=== PATIENT | male | born 1980 | race Caucasian/White ===

== ENCOUNTER 2016-06-06 19:49 | Inpatient (IN) | payer OTHER ==
[~2016-06-06] VITALS: Ht 170.2 cm; Wt 109.9 kg
[2016-06-07] MEDS ORDERED: Magnesium Hydroxide 10 mL Oral Concentration PO PRN (01:00)
[2016-06-07] MEDS ORDERED: Benzocaine-Menthol Lozenge 2/Pkg PO PRN (01:00)
[2016-06-07] MEDS ORDERED: OLAN10TA19 PO (01:57)
[2016-06-07] MEDS ORDERED: LORA2TAB PO (01:57)
--- NOTE | 2016-06-07 04:22 | NUR ---
Admit pt admitted to [facility] at 0005 via stretcher from [place] on [facility] 72 hr hold. Pt has a hx of shizophrenia, anxiety, depression and ludwigs angina. He is a self pay. He was by brought by EMS restraint via stretcher. Pt was incarcerated for domestic assault, was hallucinating and reported command hallucinations about hurting self and others (no harm contract signed). Per [facility] pt reports he had a plan to kill himself and or find anything to kill himself with. Pt appeared calm and cooperative with direction. Belongings list completed by [facility] and also admission packet completed and signed. pt states he has been off meds for quiet some time and is currently not taking anything. Pt states that he has taken seroquel, haldol and ativan at some time and seemed to have worked for him. pt received ativan and olanzapine at [place] prior to admit and according to report meds were effective. Per [facility], pt did not state need for PRN or other medications at this time. Pt did go to to his room and was asleep by 0130.
--- NOTE | 2016-06-07 05:50 | NUR ---
sleep noc shift 11-7 pt admitted at 0005 and was asleep by 0130, per Radha RN pt stated he did not need PRN's and he did not appear to be anxious. he had an uneventful night has slept about 3.5.
--- NOTE | 2016-06-07 05:54 | NUR ---
Pt arrived to unit 0005 via stretcher. Signed all paperwork and went to room. Pleasant and willing to come to staff if voices or aggressive urges occur. Asleep at 130. Pt observed every 15 minutes as ordered.
--- NOTE | 2016-06-07 14:47 | NUR ---
Chefs./ c.m. S.:"I'm a little anxious right now. Suicidal and homicidal thoughts are bad... I see blood on people and blood spots on myself also." O.: met with pt. and doctor together for initial interview in pt.'s room. Pt. is ALEXIS 72 hrs hold as DTS and DTO. He had multiple hospitalizations in the past including [facility] in [place]. He came to [place] from [place] 2 mo. ago. He is unemployed and homeless. He came from nursing home and he would have to co back to nursing home serving his sentence at time of discharge. He has mental health hx since 2004. He has a long hx of polysubstance abuse. He is using ETOH and mj frequently. He was on and off meds since 2005. He started having AH since 2004. He has family hx of mental condition. He continued having AH/VH. "They are very sweet at the beginning. They tell me to kill myself. I see blood on people and blood spots on myself also." he continued having SI/HI. He couldn't contract for safety. He rated depression at 8/10 and anxiety at 9/10. He promised to come to the Nursing station if he felt in danger or unsafe. He spent most of the time in his room except for meals. A.: pt. is cooperative, quiet, isolative, scared and anxious. P.: monitor behavior, provide safety in the unit; follow care plan.
[2016-06-07] MEDS: LORazepam 1 mg Tablet PO PRN ×2 (16:52→21:08)
[2016-06-07] MEDS: OLANZapine Zydis ODT 5 mg Tablet PO PRN (16:52)
--- NOTE | 2016-06-07 17:23 | NUR ---
Nursing Dayshift: S: "Can I get something? I'm seeing blood on people. I want to stay safe." O: Patient accepted Ativan 1 mg PO and Zyprexa 10 mg PO at 1652. Up for supper after that with a good appetite. Has been eating fast at meals. Close to 100% consumed at all meals today. Has stated that when he sees blood the voices tell him to harm those people. States the blood is a visual hallucination. Also states the voices start out nice then get meaner and more forceful the more he tries to ignore them. Anxiety and depression "high". Harmful thoughts toward himself and others "but I will let you know when I need help". A: Command AH and VH. Cooperative in alerting staff. P: CPOC. Monitor mood and behavior. Monitor for effectiveness of prn's. Addendum: 06/07/16 at 1738 by VERENICE KOCH RN Amended: Links added.
--- NOTE | 2016-06-07 18:05 | NUR ---
Observations [id number] Pt was asleep upon start of shift. Pt slept much of the day and present as very quiet and isolative. Pt attended all meals, eating 100%. Pt did not interact much with staff or peers that this policy writer sales saw. Pt was observed every 15 minutes of shift as directed.
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
--- NOTE | 2016-06-08 04:50 | NUR ---
Observations from 5903-8200 Pt spent majority of this shift in his room. He came out periodically for snacks or water but went back to sleep within 15 minutes. Pt did not attend wrap up group and appeared asleep at 2200. Pt has been monitored every 15 minutes as directed.
--- NOTE | 2016-06-08 05:57 | NUR ---
Nursing Noc Pt continues to isolate in his room but is out for snacks. He took his scheduled medication without difficulty. Pleasant upon interaction. No behavioral issues. Total sleep over 7 hours sleep with no noted distress or anxiety per protocol checks.
[2016-06-08 08:30] VITALS: BP 139/87; PULSE 95; RESP 17
[2016-06-08] MEDS: OLANZapine Zydis ODT 5 mg Tablet PO PRN ×3 (08:42→19:43)
--- NOTE | 2016-06-08 12:59 | NUR ---
Nursing Note 2023-1792 Behavior S/O: Pt out of room for meals. Pt ate 100% of breakfast. Pt reported this am prior to medications that he "feels terrible....The voices are strong today." Pt reported no improvement after am medications. Pt reported after lunch he is con't to have audio & visual hallucinations. He rated his anxiety at an "8" on a scale of 1-10/10 the worst caused by the hallucinations. "I'm staying in my room....I'm afraid to be around people." Zyprexa Zydis 10 mg given at 1310. Encouraged pt to contact staff if he con't to feels overwhelmed. Conversation tracking clear & organized with normal rate & rhythm. Pleasant & cooperative with staff. A: Pt having uncontrolled anxiety r/t internal stimulation. P: Provide PRN medication as needed. Monitor medications & effects. Provide supportive environment. Addendum: 06/08/16 at 1345 by WOOD UREÑA RN Pt reported Zyprexa Zydis was only mildly effective & has requested Ativan. 1 mg given at 1344. Will monitor effectiveness.
[2016-06-08] MEDS: LORazepam 1 mg Tablet PO PRN ×2 (13:43→18:53)
--- NOTE | 2016-06-08 15:30 | PROG NOTE ---
[address] [address] PROGRESS NOTE PATIENT: LOUIS MARITNEZ : 1980 MR#: [id number] ADMIT: 06/07/2016 JOB ID: [id number] DATE: 06/08/2016 CHIEF COMPLAINT: "I would be willing to sign in on a voluntary basis, I really want to get help. The voices are really bad today." HISTORY OF PRESENT ILLNESS: As stated above, the patient is willing to sign himself in on a voluntary basis, indicating that he is ready and willing to continue to receive additional assistance. He indicates that he is experiencing auditory and visual hallucinations this morning of seeing blood on individuals and also command- type hallucinations telling him to kill himself and others. He reports that he did receive his morning medications including Haldol 10 mg and Cogentin, but indicates that he has continued to feel quite anxious. I have instructed him to request p.r.n. doses of Zyprexa. MENTAL STATUS EXAMINATION: He was cooperative, polite. He maintained good eye contact throughout. He openly admitted to significant distress. his speech was somewhat pressured. His mood was depressed with anxious features. His affect was elevated. His thought process shows no evidence of racing thoughts, loose or disorganized thinking, thought content. He readily admitted to significant difficulties with both suicidal and homicidal ideation. He admitted to significant struggles as noted above with auditory and visual hallucinations. He was alert, oriented to time, place, situation. Attention and concentration fleeting. Insight and judgment are poor. PHYSICAL EXAMINATION: VITAL SIGNS: Current: Temperature is 36.5, pulse 95, respirations 17, BP 119/87. MEDICATION REVIEW: Includes: 1. Haldol 10 mg b.i.d. 2. Cogentin 1 mg b.i.d. 3. P.r.n. doses of Zyprexa 10 mg q.6 h. 4. Trazodone. ASSESSMENT: [place] I. 1. Schizophrenia paranoid type. 2. Cannabis use disorder, chronic, severe. 3. Anxiety disorder, not otherwise specified. [place] II. Deferred. [place] III. None. [place] IV. Stressors are noted for chronic and mental health issues, noncompliance, current status of homelessness. [place] V. Global Assessment of Functioning current 30. PLAN: 1. Recommendations for discontinuation of trazodone with initiation of Remeron as alternative for sleep disturbance. 2. Recommendations for titration of Haldol to 15 mg b.i.d. 3. Recommendations for continuation of Cogentin 1 mg b.i.d. 4. Recommendations for voluntary admission. Patient is agreeable to sign.
--- NOTE | 2016-06-08 16:32 | NUR ---
Finger Grip Machine Operator./ c.m. S.:"I'm not feeling good at all. I want to kill myself but I don't know how I can do it here." O.: met shila pt. in his room. He was in bed with his eyes open. He didn't sleep well last night. "I woke up many times because of voices. They are very bad today too. I also upset about my g.f.." Pt. continued having "very strong SI/HI" and severe AH. He also had VH a few times today. "I'm staying in my room because I don't want to hurt anybody." He rated depression at 10/10 and anxiety at 9/10. We discussed his options of follow up and he agreed that the best plan would be to get placed on 90 LRO with additional days in the hospital. "I want to get help, but I also want to make sure that I can get help after discharge from here too." He agreed to let staff know if he couldn't keep himself safe at all. He spent most of the time in his room today. A.: pt. is isolative, cooperative, anxious, fearful and internally preoccupied. P.: monitor behavior, monitor for safety, increase safety protocol; follow care plan.
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
--- NOTE | 2016-06-08 17:44 | NUR ---
Observations 0247-1921 Pt was asleep upon start of shift. Pt again remained in his room for the majority of the day, isolative and somber. Pt was friendly with staff and peers but did not spend much time interacting. Pt attended all meals, eating 100%. When this mortgage or loan underwriter took pt's vitals and asked how he was doing, and he responded "terrible, the voices are really bad today." Pt was asked in the evening if he wanted to take a shower, which he agreed to and he said helped. Pt went to bed afterwards stating "I think it helped. I'm in a tough spot, but you all here are very nice." This mortgage or loan underwriter asked pt that if there was anything else he needed or any additional support he needed, if he would let us know to which he agreed. Pt was observed every 15 minutes of shift as directed.
--- NOTE | 2016-06-08 22:31 | NUR ---
Pt isolating to his room most of shift. Pt c/t have visual and audio hallucinations. Pt states he "sees blood on some people and not on others and is staying in his room because he doesn't want to hurt anyone". Pt rates anxiety 8/10, depression 8/10 and states he is having thoughts of harming himself. Pt came out to the [employer] yuli 2014 stating " can you give me a injection Im feeling like Im going to freak out". Md called Ativan 2mg Im Inj X 1 ordered. Administered 2mg ativan in Right deltoid and it was effective. Pt took the rest of PM meds and is currently resting in room. Pt is cooperative and polite with staff. Q15 min safety checks per protocol WCTM
--- NOTE | 2016-06-09 03:02 | NUR ---
Observations 1900 to 0700 Pt affect is flat. Pt continues to respond to internal stimuli and is seeing things. Pt was polite and cooperative. Pt had the where about to let staff know when he was having troubles with hearing voices and seeing things. Pt was in and out of his room numerous times. Pt has had a hard time sleeping. Pt first appeared asleep at 01:30 and was observed every 15 minutes through the night as directed.
--- NOTE | 2016-06-09 04:23 | NUR ---
Nursing Note Noc Patient slept poorly, less than 3 hours, and was restless. Up x2 for snack and tv. Accepted prn meds 2mg Ativan IM at 210. Pleasant and communicative of his needs.
[2016-06-09] MEDS: OLANZapine Zydis ODT 5 mg Tablet PO PRN ×2 (06:37→14:52)
[2016-06-09 09:20] VITALS: BP 121/78; PULSE 98; RESP 17
--- NOTE | 2016-06-09 11:53 | PROG NOTE ---
[address] [address] PROGRESS NOTE PATIENT: LOUIS MARTINEZ : 1980 MR#: [id number] ADMIT: 06/07/2016 JOB ID: [id number] DATE: 06/09/2016 CHIEF COMPLAINT: "I really had a hard time last night." This per patient report. HISTORY OF PRESENT ILLNESS: As stated above, the patient openly admitted to continuation of difficulties with visual hallucinations, including seeing blood, auditory hallucinations telling him to hurt himself, and open identification of discussing with staff. He reportedly states that he has had several thoughts of hurting himself and states that he does not want to. He did request injection of medication last evening and, a one time dose of Ativan was given. He readily identified significant relief at that point. He continues to isolate to his room, indicating that he does not feel safe on the unit. He openly identified that he knows that he does not want to act out and therefore feels that he has to control his behaviors by isolating in his room. MENTAL STATUS EXAM: He was sincerely distressed. He made good eye contact throughout. His speech was of normal tone, frequency, and volume. His mood is depressed with anxious features. His affect is elevated. His thought process shows evidence of circumstantial thought in reference to suicidal and homicidal ideation. He admitted to both hallucinations and continuation of delusions of belief that he is tormented by demons. He was alert, oriented to place and time. His attention and concentration intact. Memory intact in the short term, senior care, recent. Insight and judgment are poor. PHYSICAL EXAM: All vital signs are current. Temperature is 36.5, pulse is 95, respirations 17, BP 139/87. MEDICATION REVIEW: Includes: 1. Remeron 15 mg q.h.s. 2. Haldol 15 mg b.i.d. 3. Cogentin 1 mg b.i.d. 4. Ativan 1 mg q.4 h. p.r.n. 5. Zyprexa 10 mg q.6 h. p.r.n. ASSESSMENT: AXIS I: 1. Schizophrenia, paranoid type. 2. Rule out posttraumatic stress disorder, chronic. AXIS II: Deferred. AXIS III: None. AXIS IV: Stressors are noted for continuation of chronic and mental health issues. AXIS V: Global Assessment of Functioning current 35. PLAN: 1. Recommendations for further titration of Haldol to 20 mg b.i.d. 2. Initiation of Restoril 30 mg q.h.s. 3. Continuation of all other medications noted. 4. Recommendations for applications of LR 90+6 to be filed tomorrow. The patient is in agreement.
--- NOTE | 2016-06-09 13:57 | NUR ---
Nursing Note [id number] Behavior S/O: Pt in bed sleeping most of this shift. He & staff reported he has not been sleeping for the past few days d/t bothersome audio & visual hallucinations. Pt allowed to sleep & eat a late breakfast. Pt ate 100%. Pt was appreciative of being allowed to sleep. Pt slept through lunch & con't to sleep at this time. A: Pt left to sleep to see if AH/VH improve with rest. P: Provide supportive environment. Monitor medications & effects.
[2016-06-09] MEDS: LORazepam 1 mg Tablet PO PRN ×2 (14:52→19:48)
--- NOTE | 2016-06-09 15:39 | NUR ---
Research Investigator./ c.m. S.:"Nothing changed. Everything is the same. I don't want to go to a public place because I don't want to see blood on people. I don't know what I will do." O.: met with pt. in his room. He was in bed resting/sleeping in the middle of the afternoon. He continued having SI/HI, AH and VH. He was concerned about AH/VH and how long they would continue bothering him. We discussed his meds. He felt "very depressed and anxious" because he didn't know "what to expect outside" of his room. He had "very good visit with ticket maker yesterday". She promised to visit him again. He agreed to go to the Dining room together with technical publications writer to get a snack from a refrigerator. A.: pt. is cooperative, isolative, quiet, internally preoccupied and anxious. P.: monitor behavior, monitor for safety, encourage pt. to come out of his room more often, court tomorrow; follow care plan.
--- NOTE | 2016-06-09 17:10 | NUR ---
Nursing: PRJoann Gutierrezhan requested something for anxiety at 8 at 1450. Received Ativan 1 mg sublingually. He suggested that he could have Ativan IM, but acquiesced to take it by mouth. He also receive Zydis 10 mg sublingually at 1450. He stated he is not only anxious but still suicidal and homicidal. "Homicidal toward people that I see who have blood on them." P: Assess for effectiveness of Ativan and Zyprexa. .
--- NOTE | 2016-06-09 21:28 | NUR ---
Obs Dayshift Pt spent the day in his room, stated that he didn't want to be out in the milieu because he didn't want to hurt anyone. Pt did come up a few times looking for meds. Pt comes out for meals and snacks but eats fast and goes back to his room. Little engaging, during 15 min. checks he just cont. to say that he is "ok". Polite, poor eye contact, head down. Ok ADL's, Good meals
--- NOTE | 2016-06-10 01:53 | NUR ---
Observations 1900 to 0700 Pt affect is flat. Pt continues to respond to internal stimuli and is seeing things. Pt was polite and cooperative. Pt was in and out of his room numerous times. Pt has had a hard time sleeping. Pt first appeared asleep at 00:30 and was observed every 15 minutes through the night as directed.
--- NOTE | 2016-06-10 06:05 | NUR ---
Sleep 11p-7a Pt remained asleep since 0030 with no further distress or awakening noted this shift. Total sleep 5.5+ hours.
[2016-06-10] MEDS ORDERED: Haloperidol Decanoate 50 mg/mL Inj IM ONE (10:30)
[2016-06-10] MEDS: OLANZapine Zydis ODT 5 mg Tablet PO PRN (11:09)
--- NOTE | 2016-06-10 11:46 | PROG NOTE ---
[address] [address] PROGRESS NOTE PATIENT: LOUIS MARTINEZ : 1980 MR#: [id number] ADMIT: 06/07/2016 JOB ID: [id number] DATE: 06/10/2016 CHIEF COMPLAINT: "Unseen demons, I know they are real." This per patient report. HISTORY OF PRESENT ILLNESS: As stated above, the patient openly admitted to continuation of hallucinations, both visual and auditory. He indicated that this morning has been quite difficult. He indicates that they repeatedly are telling him to kill himself, that he is worth nothing, that he has no reason to live. He reportedly identified that he did receive his oral doses of Haldol this morning and Cogentin and I have encouraged him to request an additional p.r.n. doses of Zyprexa. He reports that he did sleep last evening but it was broken sleep. He noted that he was woken throughout the nighttime with several intrusive memories and nightmares. Per staff report, the patient continues to isolate and withdraws to his room and shows significant limited affect. He reportedly did receive IM injections of Ativan last evening after continuation of persistence. OBJECTIVE: On mental status extremities, he is quite anxious on approach. He maintains good eye contact. He is tearful and easily able to engage. He indicates that he does not want to hurt anybody or himself. He is persistently preoccupied His speech is of normal tone, frequency and volume. His mood is neutral. His affect is guarded. His thought process shows no evidence of racing thoughts. He continues to be somewhat circumstantial and hyperreligious in his themes. He does have experience suicidal and homicidal ideation with command type hallucinations from demonic forces. He continues to have experience of visual hallucinations of seeing blood on individuals and auditory hallucinations. He was alert, oriented to time and place. His attention and concentration are intact. 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 Insight and judgment are fair/poor. PHYSICAL EXAMINATION: Vital signs of current. Temperature is 36.2, pulse 98, respirations 17, BP 121/78. MEDICATION REVIEW: Includes: 1. Haldol 20 mg b.i.d. 2. Remeron 15 mg q.h.s. 3. Restoril 30 mg q.h.s. 4. Cogentin 1 mg b.i.d. 5. P.r.n. doses of Ativan 1 mg q.4 hours p.r.n., p.o. or IM. ASSESSMENT: AXIS I 1. Schizophrenia, paranoid type. 2. Rule out posttraumatic stress disorder, chronic. 3. Anxiety disorder, not otherwise specified. AXIS II Deferred. AXIS III None. AXIS IV Stressors are noted for chronic mental illness. AXIS V Global assessment of functioning of current 30. PLANS: 1. Recommendations for titration of Ativan to 2 mg every 4 hours p.o. or IM. 2. Titration of Remeron to 30 mg q.h.s. 3. Continuation of Haldol 20 mg b.i.d., Cogentin 1 mg b.i.d. 4. Initiation of Haldol Decanoate 50 mg injection today to be followed in one month on July 11. [facility]
--- NOTE | 2016-06-10 16:10 | NUR ---
Nursing Dayshift: S: "I'm still seeing red. And the voices. They tell me to hurt myself. When I take the Ativan then I find it easier to ignore them." O: Patient has been in his room much of the shift. Out for meals with a good appetite. Approachable. No interaction with peers. Rates anxiety at a 7, depression at a 9.5, harmful thoughts "real high. I will come tell you if I'm getting to the point of acting on it." Hallucinations per above subjective. Has received Zyprexa Zydis 10 mg at 1109 for hallucinations with minimal effectiveness. Requested IM Ativan and received 2 mg IM at 1158 and again at 1605 with fair effectiveness on earlier dose. A: Med compliant. Flat. P: CPOC. Monitor mood and behavior.
--- NOTE | 2016-06-10 17:48 | NUR ---
spiritual care: follow up pt was resting, got up immediately and requested prayer. Described his day, sleep and hopes. Engaged in conversation about coping and some reminiscing, including reflections about coping with feelings about his former girlfriend. participated in prayer and reflected on connecting with old buddies or making new friends through common interests.
--- NOTE | 2016-06-10 19:54 | NUR ---
Obs Dayshift Pt only comes out of his room for meals, meds and snack. Polite when approached, calm, quiet, isolative. Pt stated that its not a very good day but that he does feel better when he is alone in his room with the lights off, calming feeling. Pt has a depressed affect, head down, poor eye contact. Pt did perk up a little when I showed him the books, and encouraged him to take a newspaper back to his room. Ok ADL's, Good meals
--- NOTE | 2016-06-10 20:45 | NUR ---
Nurses PRN Patient requested and received Ativan 2 mg IM L deltoid for c/o increased anxiety,nights to assess response.
--- NOTE | 2016-06-11 04:07 | NUR ---
nursing, nights, 11-7 s- no i think i can get back to sleep on my own. just at snack. o- has appeared to sleep after 2345 to 0200, had a snack and appeared to sleep after 0300. assessed q 15 minutes. a- polite and generally appropriate. no apparent distress. p- monitor behavior/emotional state, quality, times and amount of sleep, use and effect of medication. husam
--- NOTE | 2016-06-11 05:12 | NUR ---
Pt wake off and on for much of shift, noted feeling restless. Asleep at 2300-200,315. Pleasant and willing to come to staff if voices or aggressive urges occur. Pt observed every 15 minutes as ordered.
--- NOTE | 2016-06-11 11:43 | PROG NOTE ---
[address] [address] PROGRESS NOTE PATIENT: LOUIS MARTINEZ : 1980 MR#: [id number] ADMIT: 06/07/2016 JOB ID: [id number] DATE: 06/11/2016 CHIEF COMPLAINT: "I slept a little bit better last night." I am coming to terms that I do think my anxiety is a difficult thing that makes it so hard for me." HISTORY OF PRESENT ILLNESS: As stated above, the patient openly identified a significant improvement with his sleep last evening. He indicated that he continues to hallucinate. He is coming to terms with the fact that more than likely this hallucination will not completely go away. He indicated that it is nice and comforting to know that he can expect certain things from the medication and understanding that essentially he is going to have to learn how did actually deal with hallucinations. He reports that he is aware that he has to return to [place] [facility] for sentencing on Wednesday and he has requested relocation to [place] post his discharge from the assisted and is requesting initiation of services in that region. He indicated that he would be fine and willing to transition through the [facility] and would like to receive care possibly through [facility]. He is aware that during his sentencing that more than likely he will be seen through [facility] due to his location. OBJECTIVE: On mental status examination, he was cooperative, polite. He maintained good eye contact throughout. He was in much better spirits today. His speech was of normal tone, frequency and volume. His mood is less anxious. His affect is congruent. He denied any evidence of racing thoughts, flight of ideas, loose or disconnected thinking. Thought content: He denied any evidence of current suicidal, homicidal ideation. He indicated that he did have hallucinations last evening, both command type auditory and visual hallucinations, but indicated that he is aware that more than likely this will persist and he is coming to terms on how to deal with them. He was alert, oriented to time and place. His attention and concentration intact. Insight and judgment are fair. PHYSICAL EXAM: Vital signs are current. Temperature is 36.7, pulse 97, respirations 17, BP 121/78. MEDICATION REVIEW: Includes: 1. Remeron 30 mg q.h.s. 2. Ativan 2 mg q.4 hours p.o. or IM for anxiety/agitation. 3. Restoril 30 mg q.h.s. 4. Haldol 20 mg b.i.d. 5. Cogentin 1 mg b.i.d. 6. Haldol decanoate injection given yesterday with a repeat dose on July 11. 7. P.r.n. doses of Zyprexa 10 mg q.6 hours. ASSESSMENT: AXIS I 1. Schizophrenia, paranoid type. 2. Rule out posttraumatic stress disorder, chronic. 3. Generalized anxiety disorder. AXIS II Deferred. AXIS III None. AXIS IV Stressors are noted for chronic mental health issues, life transition. AXIS V Global assessment of functioning of current 30. PLANS: 1. Recommendations for continuation of all medications noted. 2. Continuation of LR 90+ six with planned discharge to the court on Wednesday of next week. 3. Continuation of Haldol decanoate, next injection July 11. At that point in time, discontinuation of oral doses of Haldol.
--- NOTE | 2016-06-11 13:56 | NUR ---
spiritual care; follow up brief visit, prayer. pt sleeping, appreciative of support; apologetic for feeling sleepy.
[2016-06-11 15:00] VITALS: BP 120/78; PULSE 117; RESP 17
--- NOTE | 2016-06-11 15:07 | NUR ---
Nursing Note [id number] Behavior S/O: Pt out of room for meals only. Good appetite. Pt states, "I feel worse than yesterday." Pt couldn't remember when he last had a shower. Pulse 114 today possibly d/t increased anxiety. Conversation tracking clear & organized with normal rate & rhythm. A: Pt isolative in room. Con't to have psychotic sx. P: Provide supportive environment. Monitor medications & effects.
[2016-06-11] MEDS: LORazepam 1 mg Tablet PO PRN ×2 (15:21→23:38)
--- NOTE | 2016-06-11 18:10 | NUR ---
Observations [id number] Pt was asleep upon start of shift. Pt appears to continue to be very depressed and stated to this automotive service writer that "today is worse then yesterday." Pt remained in his room for much of the day, only appearing during meal times. Pt ate 100% of meals and was pleasant with both peers and staff. Pt did take a shower at the end of the day and returned to bed. He also requested to listen to music. Pt was observed every 15 minutes of shift as directed.
[2016-06-11] MEDS: OLANZapine Zydis ODT 5 mg Tablet PO PRN (23:38)
--- NOTE | 2016-06-11 23:40 | NUR ---
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
[2016-06-12] MEDS: Alum-Mag Hydrox-Simeth 30 mL Suspension PO PRN ×2 (00:13→23:24)
--- NOTE | 2016-06-12 03:57 | NUR ---
Pt wake off and on for much of shift, noted feeling restless. Asleep at 300 but still restless up and down. Pleasant and willing to come to staff if voices or aggressive urges occur. Music from earphones was noted by Pt to be helpful. Pt observed every 15 minutes as ordered.
--- NOTE | 2016-06-12 04:13 | NUR ---
Nursing Noc Pt pleasant and cooperative carrying conversation, laughing appropriately and engaged in activities in milieu. Pt requesting everything available for sleep and still noted to be first asleep at 0300. Pt noted to earlier this shift to be sleeping for few minutes then awake. Continuing to monitor sleep time and safety by Q15 minutes visual checks. Monitoring mood, behavior, emotional state and medications. CP
--- NOTE | 2016-06-12 11:41 | PROG NOTE ---
[address] [address] PROGRESS NOTE PATIENT: LOUIS MARTINEZ : 1980 MR#: [id number] ADMIT: 06/07/2016 JOB ID: [id number] DATE: 06/12/2016 CHIEF COMPLAINT: "I am coming to terms with dealing with my anxiety. I had to go get another shot this morning. I was feeling overwhelmed." HISTORY OF PRESENT ILLNESS: As stated above, the patient openly identified a continuation of factors of anxiety. He has stated that despite interventions of Remeron 30 mg q.h.s. He continues to struggle with anxiety and fears that he would act out on his hallucinations. He identified that he has accepting that more than likely the hallucinations of seeing blood on people as well as hearing command type hallucinations telling him to kill himself and to hurt others more than likely will not go away. He states that he continues to struggle with the presentation. He openly identified that he has no specific intent or plan of acting out on the above hallucinations. He reportedly has been compliant with all of his medications but it appears he has been consistently requesting additional p.r.n. doses of Zyprexa and Ativan both p.o. and IM. I have discussed further titration of his Remeron to maximum daily doses of 45 mg q.h.s., and he is agreeable. OBJECTIVE: On mental status examination, he was cooperative, polite. He maintained good eye contact throughout. His speech was of normal tone, frequency and volume. His mood remains anxious. His affect is congruent. His thought process shows no evidence of racing thoughts, flight of ideas, loose or disconnected thinking. Thought content: He readily admits to continuation of suicidal and homicidal thoughts which are prompted by the above hallucinations. There is no evidence of paranoia. He was alert, oriented to time and place. His attention and concentration intact. 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 Insight and judgment are fair. PHYSICAL EXAMINATION: Vital signs of current. Temperature is 37.1, pulse 117, respirations 17, BP 120/78. MEDICATION REVIEW: Includes: 1. Remeron 30 mg q.h.s. 2. Ativan 2 mg q.4 hours p.o. or IM. 3. Restoril 30 mg q.h.s. 4. Haldol 20 mg b.i.d. 5. Cogentin 1 mg b.i.d. 6. Zyprexa 10 mg q.6 hours p.r.n. for psychoses. ASSESSMENT: AXIS I 1. Schizophrenia, paranoid type. 2. Generalized anxiety disorder. 3. Rule out posttraumatic stress disorder, chronic. AXIS II Deferred. AXIS III None. AXIS IV Stressors are noted for chronic mental illness. AXIS V Global assessment of functioning of current 30. PLANS: 1. Recommendations for further titration of Remeron to 45 mg q.h.s. 2. Continuation of Haldol 20 mg b.i.d. with additional Haldol Decanoate, last injection June 10. 3. Continuation of Cogentin 1 mg b.i.d. 4. Continuation of pursuit of aftercare including connections with [facility] [place] with release to shelter scheduled on Wednesday. However, it is his hope to pursue further treatment in [place] post his shelter release including [facility] and [facility].
--- NOTE | 2016-06-12 17:33 | NUR ---
Nursing Dayshift: S: "I do feel like I'm getting a little better." O: Patient noted to be much less pressured. Out of room a little more today. States anxiety and depression are "over the top", harmful thoughts "still there", and hallucinations "still seeing red on people and the voices are still there but they aren't as loud." Eating well at meals. A: Approachable. Blunted. Improving. P: CPOC. Monitor mood and behavior.
--- NOTE | 2016-06-12 18:34 | NUR ---
spiritual care: follow up visit attempt pt sleeping did not rouse to voice.
[2016-06-12 20:04] VITALS: BP 144/91; PULSE 116; RESP 16
[2016-06-12] MEDS: LORazepam 1 mg Tablet PO PRN (23:22)
[2016-06-12] MEDS: OLANZapine Zydis ODT 5 mg Tablet PO PRN (23:34)
--- NOTE | 2016-06-13 03:00 | NUR ---
Nursing Noc Pt continues to reports intrusive thoughts interrupting his sleep noted to attempt sleep with all available. PRNs with poor return. Remeron increased yesterday. Pt reports Ativan is helping with anger that he is experiencing from intrusive thoughts. Continuing to monitor q15 minute safety checks, mood, behavior, emotional state, and sleep time. CP
--- NOTE | 2016-06-13 05:30 | NUR ---
Pt wake off and on for much of shift, noted feeling restless. Asleep at [id number]. Awake on and off Pleasant and willing to come to staff if voices or aggressive urges occur. Music from earphones was noted by Pt to be helpful. Pt observed every 15 minutes as ordered.
--- NOTE | 2016-06-13 11:48 | PCM.PNPSY ---
Subjective Date of Service Jun 13, 2016 Subjective I spent 30 minutes both reviewing his treatment plan and providing supportive and educational psychotherapy. I spent more than 50% of the time counseling the patient. I reviewed the treatment plan with the patient and discussed options available including the potential risks, benefits and side effects. Amor reports continued severe hallucinations of seeing blood on people as well as hearing command type hallucinations telling him to kill himself and to hurt others more than likely will not go away. He states that he continues to struggle. The Staff reports that he has been isolating in his room and not participating well in one-to-one unit and group activities. He slept 2.75 hours. He denies medication side effects. Patient was able to identify his medications and what they were used to treat. He appeared to understand the need for medications by the questions he asked during our discussion. Current Medications Current Medications Mirtazapine 45 mg HS PO Last administered on 06/12/16t 20:03; Admin Dose 45 MG; Start 06/12/16 at 21:00 Mental Status Exam Appearance: Unkept Attitude: Pleasant, Cooperative Behavior: No unusual behavior Affect: Well Modulated/Appropriate Mood: Dysthymic Thought Process/Associations: Goal Directed Speech Production: Normal Speech Rate: Normal Speech Articulation: Normal Thought Content: Bahai preoccupation, Negativistic, Obsessions/compulsions Danger to Self/Suicidal Ideati: Passive Danger to Others: Thoughts/Plans of Harming Others Delusions: Paranoid Hallucinations: Auditory (Endorses) Orientation: Person, Place, Date, Situation Memory: Grossly Intact Estimate Intellectual Function: Above Average Basis for IQ estimate: Awareness current events, Word use/vocabulary, Educational history, Employment history Attention/Concentration & Cogn: Grossly Intact Cognitive Testing Method: Abstract Reasoning during interview, Proverb interpretation, Serial computations Insight: Limited Judgement: Good Mental Health Plan [place] AXIS I 1. Schizophrenia, paranoid type. 2. Generalized anxiety disorder. 3. Rule out posttraumatic stress disorder, chronic. AXIS II Deferred. AXIS III None. AXIS IV Stressors are noted for chronic mental illness. AXIS V Global assessment of functioning of current 30 Medications Medications to address General Physical Health Treatments Patient is being provided with a high degree of safety through the structure and active adult engagement. We will focus on developing improved coping skills and identifying stressors that may have led to current episode. We will attempt to: Integrate into therapeutic groups, milieu and individual therapy. Maintain in a closely monitored and structured unit Provide low-stimulation environment Obtain collateral data to assist in treatment planning Assess degree of lability of affect and impulse control Complete safety plan Decrease frequency of relapse and need for re-hospitalization Denies thoughts of harm to self and/or others Establish a consistent sleep pattern Medication effective in stabilization of mood and/or thought process Reduce the risk of imminent harm to self and/or others by providing a safe environment Tolerates medication without side effects Patient will be on the following psychiatric medications: 1. Recommendations for further titration of Remeron to 45 mg q.h.s. 2. Continuation of Haldol 20 mg b.i.d. with additional Haldol Decanoate, last injection June 10. 3. Continuation of Cogentin 1 mg b.i.d. Address patient's legal status Patient is on a involuntary treatment hold which will on Wednesday. At that point the plan had been to transfer patient back to [facility] if he can be safely managed. Disposition: Continuation of pursuit of aftercare including connections with [facility] with release to [facility] scheduled on Wednesday. However, it is his hope to pursue further treatment in [place] post his [facility] release including [facility]. Garret Del Castillo MD Jun 13, 2016 11:48
[2016-06-13 14:20] VITALS: BP 131/86; PULSE 109; RESP 16
--- NOTE | 2016-06-13 16:10 | NUR ---
Observations 0700 to 1900 Pt maintained behavioral control throughout the shift. Pt is flat, anxious, isolative. "The noise and people make me upset." Pt stayed in room in bed for entire shift thus far, except for meals. Pt did not participate in any community activities. Pt is cooperative when approached by staff. Pt ate 75-100% of meals and was observed every 15 minutes as ordered.
--- NOTE | 2016-06-13 18:15 | NUR ---
Nursing Notes Days 4275-8009 S: "I am having suicidal thoughts, but the homicidal thoughts are worse". O: Patient seen putting fingers in ears due to verbal noise on unit. Patient agrees to keep safe on unit and seek out staff if he feels unsafe. Rates anxiety as 02/07, depression 01/07, suicidal thoughts 11/07, homicidal thoughts 12/07-patient agrees to stay safe on unit and seek staff if he is feeling unsafe. A: Patient isolating in room except for meals. Patient cooperative, P: Monitor for safety and response to treatment. Follow plan of care. Addendum: 06/13/16 at 1816 by EARLINE CASTILLO RN PRKhoa Ativan 2 mg IM @ 0900 for anxiety 8/. Effective anxiety reduced to 6/10. Ativan 2 mg IM @ 0900 for anxiety 8/10. Effective anxiety reduced to 6/10.
[2016-06-14] MEDS: Alum-Mag Hydrox-Simeth 30 mL Suspension PO PRN ×2 (01:41→21:47)
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
--- NOTE | 2016-06-14 03:48 | NUR ---
Nursing Noc Pt continues to maintain control within milieu, Pt still requesting and using PRNs as available. Reports zero improvement in anxiety or depression, reports increased SI and HI, but reports will maintain safety. Using headphones to help with evil thought insertion. Isolates to room, out for medications and ADLs only.
[2016-06-14] MEDS: LORazepam 1 mg Tablet PO PRN ×3 (10:49→20:43)
--- NOTE | 2016-06-14 11:59 | PCM.PNPSY ---
Subjective Date of Service Jun 14, 2016 Subjective I spent 30 minutes both reviewing his treatment plan and providing supportive and educational psychotherapy. I spent more than 50% of the time counseling the patient. I reviewed the treatment plan with the patient and discussed medication and psychotherapy options to deal with his current delusions. Amor continues to have severe hallucinations of seeing blood on people as well as hearing command type hallucinations telling him to kill himself and to hurt others. He states that he continues to struggle. The Staff reports that he has been isolating in his room and not participating well in one-to-one unit and group activities. He slept 5 hours. He denies medication side effects. Patient was able to identify his medications and what they were used to treat. He appeared to understand the need for medications by the questions he asked during our discussion. Current Medications Current Medications Mirtazapine 45 mg HS PO Last administered on 06/13/16t 20:49; Admin Dose 45 MG; Start 06/12/16 at 21:00 Mental Status Exam Appearance: Unkept Attitude: Pleasant, Cooperative Behavior: No unusual behavior Affect: Well Modulated/Appropriate Mood: Dysthymic Thought Process/Associations: Goal Directed Speech Production: Normal Speech Rate: Normal Speech Articulation: Normal Thought Content: Adventist preoccupation, Negativistic, Obsessions/compulsions Danger to Self/Suicidal Ideati: Passive Danger to Others: Thoughts/Plans of Harming Others Delusions: Paranoid Hallucinations: Auditory (Endorses) Orientation: Person, Place, Date, Situation Memory: Grossly Intact Estimate Intellectual Function: Above Average Basis for IQ estimate: Awareness current events, Word use/vocabulary, Educational history, Employment history Attention/Concentration & Cogn: Grossly Intact Cognitive Testing Method: Abstract Reasoning during interview, Proverb interpretation, Serial computations Insight: Good Judgement: Good Mental Health Plan Amor is a 35-year-old white male who had previously gone to [employer] school and had made a pilgrimage to [place] where he had his first psychotic break in 2004. 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 He had a partial response to current medication treatments but continues to have rather severe psychotic symptoms of auditory hallucinations and baptism delusions that are fueling an impulse to suicide or homicide. He does not identify any specific means to kill himself and he does not have any specific desire to kill any individual person. He does seem to be responding to the structure of the unit as well as medications. He seems to be making slow but steady progress. His legal hold here will be up on Wednesday and the plan had been to get him back to retirement to serve his time. He had had an he had found his girlfriend with another alma and had been charged with domestic violence. [place] AXIS I 1. Schizophrenia, paranoid type. 2. Generalized anxiety disorder. 3. Rule out posttraumatic stress disorder, chronic. AXIS II Deferred. AXIS III None. AXIS IV Stressors are noted for chronic mental illness. AXIS V Global assessment of functioning of current 30 Medications Treatments Patient is being provided with a high degree of safety through the structure and active adult engagement. We will focus on developing improved coping skills and identifying stressors that may have led to current episode. We will attempt to: Integrate into therapeutic groups, milieu and individual therapy. Maintain in a closely monitored and structured unit Provide low-stimulation environment Obtain collateral data to assist in treatment planning Assess degree of lability of affect and impulse control Complete safety plan Decrease frequency of relapse and need for re-hospitalization Denies thoughts of harm to self and/or others Establish a consistent sleep pattern Medication effective in stabilization of mood and/or thought process Reduce the risk of imminent harm to self and/or others by providing a safe environment Tolerates medication without side effects Patient will be on the following psychiatric medications: 1. Recommendations for further titration of Remeron to 45 mg q.h.s. 2. Continuation of Haldol 20 mg b.i.d. with additional Haldol Decanoate, last injection June 10. 3. Continuation of Cogentin 1 mg b.i.d. Address patient's legal status Patient is on a involuntary treatment hold which will on Wednesday. At that point the plan had been to transfer patient back to retirement if he can be safely managed. Disposition: Continuation of pursuit of aftercare including connections with [facility] [place] with release to retirement scheduled on Wednesday. However, it is his hope to pursue further treatment in [place] post his retirement release including access of the [facility] [facility] [place] and [facility]. Garret Del Castillo MD Jun 14, 2016 11:59
--- NOTE | 2016-06-14 12:57 | NUR ---
Senior Shipping Clerk./ c.m. S.:"I'm not good..." O.: met with pt. in his room. He slept "good last night but woke up a few times from nightmares and bad dreams." He continued having SI/HI and VH. He noticed that AH were "not all the time, they come and go". He rated depression at 8.5/10 and anxiety at 10/10. He said that Ativan helped him for a short period of time only. He asked if "there is anything stronger than Ativan" that he could take.Quotation Clerk promised pt. to pass this request to MD. Pt. spent all morning in bed in his room except for meals. He said that he was planing to walk in a javier after lunch. A.: pt. is cooperative, isolative, quiet, internally preoccupied at times. He has a flat affect and looks unkempt. P.: monitor behavior, encourage pt. to stay more in a public area; follow care plan.
--- NOTE | 2016-06-14 13:17 | NUR ---
DAYS 7-7 S/O- Patient states "I am not doing so great", but unable to articulate what is bothering him at this time. Patient has been sleeping most of morning, up for lunch, missed breakfast, polite, and cooperative. A- AM medications given without issues, PRN Ativan 2mg given for anxiety. P-Continue to monitor for visual hallucinations and thoughts. Safety. Care plan.
[2016-06-14 17:00] VITALS: BP 143/89; PULSE 119; RESP 16
--- NOTE | 2016-06-14 18:06 | NUR ---
Observations 0700 to 1900 Pt affect and mood was isolative, flat, guarded but bright when engaged. Pt speech and eye contact was good. Pt remained in his room in bed most of the day. Pt was minimally social with staff when approached. Pt came out for meals, attended meals in D.R. and ate 100% of all meals. Pt ate snacks as well. Pt maintained behavior throughout the shift. Pt was polite pleasant and cooperative. Pt was observed every 15 minutes throughout the shift as ordered.
[2016-06-14] MEDS: OLANZapine Zydis ODT 5 mg Tablet PO PRN (18:12)
--- NOTE | 2016-06-15 04:20 | NUR ---
Observations from [id number] Pt was out on the unit with peers for most of the evening. He opened up well with staff and spoke with us when he woke up from bad dreams, pt was able to clearly articulate what was going on and was able to calm down and be redirected. Pt appeared asleep from [id number] and 0315 to time of this note. Pt has been monitored every 15 minutes as directed.
--- NOTE | 2016-06-15 05:26 | NUR ---
Nursing 7p-7a The pt spent his time out on the unit participating in evening activities, socializing with his peers and watching a night time movie. His only physical complaint tonight was acid reflux that was not resolved despite receiving a prn dose of Maalox plus. He received Zyprexa Zydis prn dose in the early evening for continued complaints of AVH. Poor broken sleep through the night. He awoke at one point in the night stating he had a nightmare but felt he was doing okay. Pt slept from [id number], [id number], 0315 to current time. Total sleep up to current time 3.25 hours.
[2016-06-15] MEDS: LORazepam 1 mg Tablet PO PRN ×3 (09:08→20:06)
--- NOTE | 2016-06-15 10:25 | NUR ---
Nursing: Day shift: 0700 to 1900 PRN med. Amor has been lying on bed in room. He was up for breakfast. At 0900 received Ativan 2 mg per request. 10:30 Effectiveness 1030; Pt able to sit up and interact with Dr and manager medical device. Will assess later.
[2016-06-15] MEDS: OLANZapine Zydis ODT 5 mg Tablet PO PRN ×2 (14:24→23:20)
--- NOTE | 2016-06-15 14:42 | NUR ---
Scribing Machine Operator./ c.m. S.:"I still feel pretty suicidal and I hear and see demons. I'm just sad, very sad." O.: met with pt. and MD together in pt.'s room. He was in bed sleeping/resting but he agreed to sit up and talk to MD and freelance copywriter. He continued having SI/HI "sometimes". He continued having AH/VH. He didn't sleep well last night because of "nightmares". He rated depression at 9/10 and anxiety at 10/10. MD talked to pt. about his use of Ativan and pt. agreed with a plan of reducing use of Ativan. He also agreed to try mood stabilizer medication. He agreed to extend his stay here for up to 7 days if needed. Pt. is aware of court hearing tomorrow for additional time here. A.: pt. is cooperative, isolative, quiet. P.: monitor behavior, provide safety in the unit, follow care plan.
[2016-06-15] MEDS: OXcarbazepine 300 mg Tablet PO SCH ×2 (16:31→20:06)
--- NOTE | 2016-06-15 17:45 | NUR ---
Observations [id number] Pt was asleep upon start of shift. Pt's mood appears isolative and somber. Pt attended all meals, eating 100%. Pt did not participate in groups, and slept much of the day. Pt did however speak to his public works commissioner and appears to be making plans regarding the future. When asked how he was doing, he continues to respond "not good." Pt was friendly with staff and peers. He was observed every 15 minutes of shift as directed.
--- NOTE | 2016-06-15 18:27 | PCM.PNPSY ---
Subjective Date of Service Jun 15, 2016 Subjective The patient reports that he has significant anxiety primarily around hearing demons talking to him and his concern about seeing blood on other individuals and having the voices telling him to harm them. He reports a history of being on Depakote in the past but this medication had to be stopped due to side effects. He is not sure of its effectiveness. He is never been on carbamazepine or oxcarbazepine. He has been using lorazepam 2 mg approximately 3 times a day as well as olanzapine when necessary for his agitation. He is agreeable to having a Haldol injection if his symptoms can be stabilized. He denies current side effects. Sleep: 3.75+ hours Appetite: Okay Suicidal and homicidal ideation: He endorses suicidal ideation at times but denies intent to harm himself in the hospital. He denies current homicidality. Auditory hallucinations: He endorses hearing demons Visual hallucinations: reports having seen blood on people in the past and the last occurred 2 days ago. Other Psychotic Symptoms: Ongoing paranoia. Anxiety: "Will not go down without Ativan." Depression: "Sad" 02/07 Current Medications Current Medications Oxcarbazepine 300 mg BID PO Last administered on 06/15/16 16:31; Admin Dose 300 MG; Start 06/15/16 at 14:30 Prazosin HCl 2 mg HS PO Last administered on 06/14/16 20:41; Admin Dose 2 MG; Start 06/14/16 at 21:00 Mental Status Exam Appearance: Unkept Attitude: Cooperative, Guarded Behavior: No unusual behavior Affect: Restricted Mood: Dysthymic Thought Process/Associations: Goal Directed Speech Production: Normal Speech Rate: Lags/Latency (mild) Speech Articulation: Normal Thought Content: Mu-Ism preoccupation, Negativistic, Obsessions/compulsions Danger to Self/Suicidal Ideati: Passive Danger to Others: Thoughts/Plans of Harming Others (concerned but denies actively today.) Delusions: Paranoid Hallucinations: Auditory (Endorses), Visual (denies, last 2 days ago) Orientation: Person, Place, Date, Situation Memory: Grossly Intact Estimate Intellectual Function: Average Basis for IQ estimate: Awareness current events, Word use/vocabulary, Educational history, Employment history Attention/Concentration & Cogn: Grossly Intact Insight: Good Judgement: Good Mental Health Plan The patient is a 35-year-old male who had previously gone to [employer] school and had made a pilgrimage to [place] where he had his first psychotic break in 2004. 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 He had a partial response to current medication treatments but continues to experience auditory and visual hallucinations with yazidi delusions and ongoing suicidality and homicidality. He denies current intent to harm himself or others although he is unsure should he be released from hospital. The patient appears to have had a partial response to medication but continues to use heavy doses of anxiolytics and continues to express anxiety. Given the partial response, augmentation with a mood stabilizer is warranted at this time. He reported side effects from Depakote and so an alternate is warranted at this time. Once he is done with his time in the hospital he will return to the long-term. He is willing to stay in the hospital to adjust medications. [place] AXIS I 1. Schizophrenia, paranoid type. 2. Generalized anxiety disorder. 3. Rule out posttraumatic stress disorder, chronic. AXIS II Deferred. AXIS III None. AXIS IV psychosocial stressors moderate to severe AXIS V Global assessment of functioning of current 25 Medications Benztropine 1 mg twice daily Haloperidol 20 mg twice daily Prazosin 2 mg nightly Mirtazapine 45 mg nightly Temazepam 30 mg nightly Lorazepam 2 mg every 4 hours as needed using approximately 6 mg per day. Treatments 1. Continue current medications as written except to reduce lorazepam. 2. Lorazepam 1 mg every 6 hours as needed for anxiety. 3. Patient given informed consent including risks and benefits of starting oxcarbazepine and he was agreeable. Oxcarbazepine 300 mg twice daily. Will titrate as needed. 4. Patient is due for next haloperidol decanoate on 06/17/2016. 5. We will request a seven-day extension on his existing 90 day less restrictive order. 6. No indication for one to one at this time as he is denying current suicidality with intent to harm self in the hospital and is denying current homicidality. 7. Patient will return to long-term once mental health treatment is completed. Norberto Alarcon MD Jun 15, 2016 18:27
[2016-06-15] MEDS: Alum-Mag Hydrox-Simeth 30 mL Suspension PO PRN (23:20)
--- NOTE | 2016-06-16 01:04 | NUR ---
Observations 1900 to 0700 Pt affect is flat but improved. Pt was polite and cooperative. Pt was polite and cooperative. Pt was in and out of his room numerous times. Pt has had a hard time sleeping. Pt first appeared asleep at 21:45 and was observed every 15 minutes through the night as directed.
[2016-06-16] MEDS: LORazepam 1 mg Tablet PO PRN ×4 (02:58→21:57)
--- NOTE | 2016-06-16 06:14 | NUR ---
Nursing Noc Pt pleasant and cooperative upon interaction. Socially appropriate with both peers & staff. He is still experiencing anxiety r/t AVH. Anxiety has definitely decreased in intensity. He received Ativan 1mg po prn for felt anxiety @ 0258 with good results. Improved sleep tonight with only one episode of middle of the night awakening. Total hours of sleep 8+.
[2016-06-16] MEDS: OXcarbazepine 300 mg Tablet PO SCH ×2 (09:07→21:14)
[2016-06-16] MEDS: OLANZapine Zydis ODT 5 mg Tablet PO PRN (11:58)
--- NOTE | 2016-06-16 15:27 | NUR ---
Deaf Interpreter./c.m. S./O.: spoke with [facility] ([phone] - work, - cell) about pt.'s legal status. Osman Zavala asked staff to contact him 1 day prior to pt.'s discharge from here in order to arrange pt.'s transportation back to longterm. Pt. spent majority of time in his room during a day. A.: pt. is isolative, quiet, cooperative. P.: monitor behavior, court tomorrow for additional days in the hospital, follow care plan.
[2016-06-16 16:30] VITALS: BP 123/83; PULSE 104; RESP 16
--- NOTE | 2016-06-16 16:56 | PCM.PNPSY ---
Subjective Date of Service Jun 16, 2016 Subjective The patient reports that he experienced no significant change in anxiety level with drop in lorazepam dose. He reported that his auditory hallucinations were not as intense as yesterday. He did report seeing blood on an individual today which made him concerned as he was having auditory hallucinations to kill them but as noted above, the intensity was much decreased and he had no intent of harming anyone. He denies side effects from Trileptal. The patient does however report some restlessness and possible akathisia. Sleep: 8+ hours. Appetite: "Okay" Suicidal and homicidal ideation: As noted above and reports some concern that he may cut on himself if he were to leave the hospital. He continues to report that he would not harm himself in the hospital. Auditory hallucinations: After seeing blood on individuals. Reports intensity decreased. Visual hallucinations: As above. Other Psychotic Symptoms: Some paranoia Anxiety: 9/10, no clear objective signs. Depression: 9/10 Current Medications Current Medications Lorazepam 1 mg Q6 PRN PO Last administered on 06/16/16 15:33; Admin Dose 1 MG ; Start 06/15/16 at 14:30 Oxcarbazepine 300 mg BID PO Last administered on 06/16/16 09:07; Admin Dose 300 MG; Start 06/15/16 at 14:30 Prazosin HCl 2 mg HS PO Last administered on 06/15/16 20:04; Admin Dose 2 MG; Start 06/14/16 at 21:00 Mental Status Exam Appearance: Unkept Attitude: Cooperative, Guarded Behavior: No unusual behavior Affect: Restricted Mood: Dysthymic, Anxious Thought Process/Associations: Goal Directed Speech Production: Normal Speech Rate: Normal Speech Articulation: Normal Thought Content: Yazidism preoccupation, Negativistic, Obsessions/compulsions Danger to Self/Suicidal Ideati: Passive Danger to Others: Thoughts/Plans of Harming Others (in response to auditory hallucinations but no intent to harm.) Delusions: Paranoid Hallucinations: Auditory (Endorses), Visual (endorses) Orientation: Person, Place, Date, Situation Memory: Grossly Intact Estimate Intellectual Function: Average Basis for IQ estimate: Awareness current events, Word use/vocabulary, Educational history, Employment history Attention/Concentration & Cogn: Grossly Intact Insight: Good Judgement: Good Mental Health Plan The patient is a 35-year-old male who had previously gone to [employer] school and had made a pilgrimage to [place] where he had his first psychotic break in 2004. 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 He had a partial response to current medication treatments but continues to experience auditory and visual hallucinations with buddhism delusions and ongoing suicidality and homicidality. He denies current intent to harm himself or others although he is unsure should he be released from hospital. The patient appears to have had a partial response to medication but continues to use heavy doses of anxiolytics and continues to express anxiety. Given the partial response, augmentation with a mood stabilizer is warranted at this time. He reported side effects from Depakote and so an alternate is warranted at this time. Once he is done with his time in the hospital he will return to the half-way. He is willing to stay in the hospital to adjust medications. Today, the patient is reporting that his anxiety is not worse with decreased doses of lorazepam and addition of Trileptal. This would suggest that Trileptal is helping to reduce anxiety. He also reports a decrease in intensity of auditory hallucinations. The patient is agreeable to additional time in the hospital to stabilize medication. [place] AXIS I 1. Schizophrenia, paranoid type. 2. Generalized anxiety disorder. 3. Rule out posttraumatic stress disorder, chronic. AXIS II Deferred. AXIS III None. AXIS IV psychosocial stressors moderate to severe AXIS V Global assessment of functioning of current 25 Medications Benztropine 1 mg twice daily Haloperidol 20 mg twice daily Oxcarbazepine 300 mg twice daily Haloperidol decanoate 50 mg on 06/10/2016. Next dose due 06/17/2016. Prazosin 2 mg nightly Mirtazapine 45 mg nightly Temazepam 30 mg nightly Lorazepam 1 mg every 6 hours as needed using approximately 4 mg per day. Treatments 1. Continue current medications as written. 2. Lorazepam 1 mg every 6 hours as needed for anxiety. 3. Continue oxcarbazepine and titrate as needed. 4. Patient is due for next haloperidol decanoate 100 mg IM on 06/17/2016. 5. Patient received seven-day extension on his existing 90 day less restrictive order. 6. No indication for one to one at this time as he is denying current active suicidality with intent to harm self in the hospital and is reporting homicidality no targets and no plan or intent. 7. Patient will return to half-way once mental health treatment is completed. Norberto Alarcon MD Jun 16, 2016 16:56
--- NOTE | 2016-06-16 17:20 | NUR ---
Observations [id number] Pt was in room upon start of shift. Pt was again very isolative to his room, sleeping much of the day and appearing only for meals. Pt appears to have a good appetite and is eating 100% of meals. Pt reported to this film writer that "today is really bad" regarding voices, and voiced that he is hopeful regarding his medication change that it may help more. Pt did not participate in group. He was observed every 15 minutes of shift as directed.
--- NOTE | 2016-06-16 18:38 | NUR ---
Nursin to 1900 S/O: Amor has been lying in bed most of the shift. Looks distressed. Requested and received Ativan 1 mg at 0900 and 1500 for anxiety. He told music writer. "I had a bad day. I keep having day dreams. I'm a mess. I still hear the whispers. I felt like suicide earlier but I talked myself out of it." Pt reminded that the no-harm contract he signed on admission states he will notify staff when he is overwhelmed and feel like self-harm. He agreed to do that this evening if he feels suicidal. A: Remains suicidal and depressed. AH. P: Close observation for safety.
[2016-06-17] MEDS: Alum-Mag Hydrox-Simeth 30 mL Suspension PO PRN ×2 (00:13→23:15)
--- NOTE | 2016-06-17 01:47 | NUR ---
Observations 1900 to 0700 Pt affect is flat but improved. Pt was polite and cooperative. Pt was in and out of his room numerous times but seemed more comfortable out in the DR. Pt has had a hard time sleeping. Pt first appeared asleep at 23:30 and was observed every 15 minutes through the night as directed.
--- NOTE | 2016-06-17 05:20 | NUR ---
Nursing Noc Pt first appeared to be asleep at 2300 and remained aslepp through the night. Pt positive and hopeful that new medication Trileptal is becoming effective and controlling A/V hallucinations. Reports voices have quieted since beginning new medication. Patient scheduled to receive Haldol injection #1 today. Continuing to monitor sleep time, mood, behavior, emotional state and safety by Q15 minute safety checks.
[2016-06-17] MEDS: OXcarbazepine 300 mg Tablet PO SCH (09:28)
--- NOTE | 2016-06-17 12:12 | NUR ---
Nursing Day Shift- S- "I isolate a lot." O- Pt. was in his room until lunchtime. He had slept 7.5 hours plus last night per report. He reported a very slight improvement in auditory and visual hallucinations. He denied suicidal thoughts. Pt. eat 100% lunch. Pt. requested and received Ativan 1 mg and Zyprexa at 1150. A- Slight improvement in affect since last seen 3 days ago. P- Cont. BHTP.
[2016-06-17] MEDS: LORazepam 1 mg Tablet PO PRN ×2 (12:26→20:40)
[2016-06-17] MEDS: OLANZapine Zydis ODT 5 mg Tablet PO PRN ×2 (12:26→19:06)
[2016-06-17] MEDS ORDERED: Haloperidol Decanoate 50 mg/mL Inj IM ONE (13:00)
--- NOTE | 2016-06-17 16:59 | NUR ---
Obs Dayshift Pt is continuing to spend most of his time in his room. Pt is polite, calm, engages when approached. Pt is sleeping more today than past days, wakes slightly startled when staff goes in for meal times. Pt has good eye contact, states that he has some bad thoughts and appears to have better mornings and worse in the evening. Good ADL's, Good meals
--- NOTE | 2016-06-17 18:48 | NUR ---
Copyright Expert/Counselor: S: "I don't spend a lot of time around other people." O: Patient slept 7+ hours last night as per staff. He has passive thoughts of hurting/cutting himself if he is outside the hospital. He denies H/I. He reports having "some" visual hallucinations. He did not rate depression and anxiety. A: Patient is cooperative, guarded, restricted affect, dysthymic, anxious, sikh preoccupation, paranoid, unkept. P: Follow care plan coordinate out-patient providers.
--- NOTE | 2016-06-17 19:43 | PCM.PNPSY ---
Subjective Date of Service Jun 17, 2016 Subjective Patient reports that he is feeling "pretty anxious" but is noting no worsening of his auditory hallucinations. He reported having visual hallucinations of blood on individuals with auditory hallucinations telling him to kill individuals but was able to ignore them and he feels that the homicidal ideation appears decreased. The patient denied any specific target or intent. He still reports concern about suicidality on discharge in particular, "since they do not watch you as well as they do here when you are in halfway." Sleep: 7+ hours, "still having nightmares." Appetite: "Okay" Suicidal and homicidal ideation: As above Auditory hallucinations/Visual hallucinations: As above Other Psychotic Symptoms: Appears calmer more organized Anxiety: 02/07 Depression: 01/07 Current Medications Current Medications Haloperidol Decanoate 100 mg ONCE ONCE IM Last administered on 06/17/16t 12:21 ; Admin Dose 100 MG; Start 06/17/16 at 13:00; Stop 06/17/16 at 13:01; Status DC Mental Status Exam Appearance: Unkept Attitude: Cooperative, Guarded Behavior: No unusual behavior Affect: Restricted Mood: Dysthymic, Anxious Thought Process/Associations: Goal Directed Speech Production: Normal Speech Rate: Normal Speech Articulation: Normal Thought Content: Taoism preoccupation, Negativistic, Obsessions/compulsions Danger to Self/Suicidal Ideati: Passive (no intent or plan while in hospital uncertain in halfway) Danger to Others: Thoughts/Plans of Harming Others (in response to auditory hallucinations but no intent to harm.) Delusions: Paranoid Hallucinations: Auditory (Endorses), Visual (endorses) Orientation: Person, Place, Date, Situation Memory: Grossly Intact Estimate Intellectual Function: Average Basis for IQ estimate: Awareness current events, Word use/vocabulary, Educational history, Employment history Attention/Concentration & Cogn: Grossly Intact Insight: Good Judgement: Good Mental Health Plan The patient is a 35-year-old male who had previously gone to [employer] school and had made a pilgrimage to [place] where he had his first psychotic break in 2004. 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 He had a partial response to current medication treatments but continues to experience auditory and visual hallucinations with sikhism delusions and ongoing suicidality and homicidality. He denies current intent to harm himself or others although he is unsure should he be released from hospital. The patient appears to have had a partial response to medication but continues to use heavy doses of anxiolytics and continues to express anxiety. Given the partial response, augmentation with a mood stabilizer is warranted at this time. He reported side effects from Depakote and so an alternate is warranted at this time. Once he is done with his time in the hospital he will return to the halfway. He is willing to stay in the hospital to adjust medications. Today, the patient is reporting that his anxiety is worse with decreased doses of lorazepam but auditory hallucinations have not worsened. He is amenable to increasing oxcarbazepine. We discussed cross tapering from mirtazapine to Lexapro for better depression and anxiety coverage and the patient was amenable. He was agreeable to increasing prazosin for nightmares and vital signs have been stable to mildly hypertensive. Discussed with patient need to monitor for hypotension. [place] AXIS I 1. Schizophrenia, paranoid type. 2. Generalized anxiety disorder. 3. Rule out posttraumatic stress disorder, chronic. AXIS II Deferred. AXIS III None. AXIS IV psychosocial stressors moderate to severe AXIS V Global assessment of functioning of current 30 Medications Benztropine 1 mg twice daily Haloperidol 20 mg twice daily Oxcarbazepine 300 mg twice daily Haloperidol decanoate 50 mg on 06/10/2016. Next dose due 06/17/2016. Prazosin 2 mg nightly Mirtazapine 45 mg nightly Temazepam 30 mg nightly Lorazepam 1 mg every 6 hours as needed using approximately 4 mg per day. Treatments 1. Continue current medications as written except as noted below. 2. Will decrease Lorazepam to 1 mg every 8 hours as needed for anxiety tomorrow if tolerates changes to other medications. 3. Increase oxcarbazepine to 300 mg daily and 600 mg nightly 4. Patient received haloperidol decanoate 100 mg IM on 06/17/2016. 5. Begin cross taper from mirtazapine to Lexapro with Lexapro 5 mg in the morning and mirtazapine decreased to 30 mg. We will discontinue temazepam in 5 days. 6. Increase prazosin to 4 mg nightly and change temazepam to PRN only. 7. Patient received seven-day extension on his existing 90 day less restrictive order. 8. No indication for one to one at this time as he is denying current active suicidality with intent to harm self in the hospital and is reporting homicidality with no targets and no plan or intent. 9. Patient will return to halfway once mental health treatment is completed. Norberto Alarcon MD Jun 17, 2016 19:43
[2016-06-17] MEDS ORDERED: OXcarbazepine 300 mg Tablet PO SCH (21:00)
--- NOTE | 2016-06-17 22:21 | NUR ---
NURSING NOTE [id number] Orientation= x3 Mood= "not good" Affect= anxious, preoccupied Behavior= pt. mostly kept to his room this shift (reporting he does this d/t his frequent visual hallucinations), did come out for meals and to ask for medications Thought processes= experiencing "a lot" of visual and auditory hallucinations; he reports he sees blood on his peers and hears voices telling him to "kill people", though he insists he does not want to or intend to act on these commands. He reports he feels suicidal d/t his hallucinations "torturing" him, but that he has no plan/intent and will tell staff if this changes. PRNs Zyprexa 10 mg @ 19:06 Ativan 1 mg @ 20:40 Temazepam 30 mg @ 22:02
--- NOTE | 2016-06-18 04:47 | NUR ---
Observations 1900 to 0700 Pt affect is flat but improved. Pt was polite and cooperative. Pt was in and out of his room numerous times. Pt has had a hard time sleeping. Pt first appeared asleep at 23:00 and was observed every 15 minutes through the night as directed.
--- NOTE | 2016-06-18 05:02 | NUR ---
nursing, nights, 11-7 s- can i have a snack ? thanks. o- has appeared to sleep after 2300. up briefly at 0230 for a snack. assessed q 15 minutes. a- no apparent distress. p- monitor behavior/emotional state, quality, times and amount of sleep, use and effect of medication. husam
[2016-06-18] MEDS ORDERED: OXcarbazepine 300 mg Tablet PO SCH (08:30)
[2016-06-18 10:34] VITALS: BP 142/83; PULSE 112; RESP 16
--- NOTE | 2016-06-18 11:50 | NUR ---
Nursing Day Shift- S- "I'm not doing so good." O- Pt. was asleep at the start of the day shift. He had slept 6+ hours during last night per report. Pt. woke and eat snack, then returned to bed. He appears to be sleeping soundly at this time. A- Ongoing distressing visual and auditory hallucinations. Pt. report he can maintain his safety on the unit. P- Cont. BHTP.
[2016-06-18] MEDS: LORazepam 1 mg Tablet PO PRN ×3 (12:10→21:49)
[2016-06-18] MEDS: OLANZapine Zydis ODT 5 mg Tablet PO PRN ×2 (15:47→21:49)
--- NOTE | 2016-06-18 17:21 | NUR ---
Fire Prevention Inspector/Counselor: S: "I don't spend a lot of time around other people." O: Patient slept 6+ hours last night as per staff. He has passive thoughts of hurting himself if he is outside the hospital. He denies H/I. He denies auditory and visual hallucinations. Depression is 9/10 and anxiety is 8/10. A: Patient is cooperative, unkept, restricted affect, dysthymic, anxious, paranoid, passive. P: Follow care plan coordinate out-patient providers.
--- NOTE | 2016-06-18 18:16 | NUR ---
Observations 0900 to 2130 Pt affect and mood was isolative, flat, guarded but bright when engaged. Pt speech and eye contact was good. Pt remained in his room in bed most of the day. Pt was minimally social with staff when approached. Pt came out for meals and snacks. Pt attended meals in D.R. and ate 100% of all meals. Pt maintained behavior throughout the shift. Pt declined going to groups and unit activities. Pt was polite, pleasant and cooperative. Pt was observed every 15 minutes throughout the shift as ordered.
[2016-06-18] MEDS: OXcarbazepine 300 mg Tablet PO SCH (20:46)
[2016-06-18] MEDS ORDERED: LORazepam 1 mg Tablet PO PRN (21:55)
--- NOTE | 2016-06-18 21:55 | PCM.PNPSY ---
Subjective Date of Service Jun 18, 2016 Subjective The patient reports that he feels about the same as yesterday, He does state that he has not had any visual hallucinations so far today. He reports still having anxiety but objectively appears calmer. No side effects. Sleep: 6+ hours, "there, but..." Appetite: "pretty good" Suicidal and homicidal ideation: patient reports transient SI/HI with no plan or intent, but concern should he be discharged. Auditory hallucinations: reports ongoing negative Visual hallucinations: None so far today. Other Psychotic Symptoms: N/A Anxiety: 01/07 Depression: 02/07 Current Medications Current Medications Escitalopram Oxalate 5 mg DAILY PO Last administered on 06/18/16 08:12; Admin Dose 5 MG; Start 06/18/16 at 08:30 Haloperidol Decanoate 100 mg ONCE ONCE IM Last administered on 06/17/16 12:21 ; Admin Dose 100 MG; Start 06/17/16 at 13:00; Stop 06/17/16 at 13:01; Status DC Mirtazapine 30 mg HS PO Last administered on 06/17/16 20:37; Admin Dose 30 MG; Start 06/17/16 at 21:00; Stop 06/22/16 at 21:01 Oxcarbazepine 300 mg DAILY PO Last administered on 06/18/16 07:33; Admin Dose 300 MG; Start 06/18/16 at 08:30 Oxcarbazepine 600 mg HS PO Last administered on 06/17/16 20:40; Admin Dose 600 MG; Start 06/17/16 at 21:00 Prazosin HCl 4 mg HS PO Last administered on 06/17/16 20:39; Admin Dose 4 MG; Start 06/17/16 at 21:00 Temazepam 30 mg HS PRN PO Last administered on 06/17/16 22:02; Admin Dose 30 MG; Start 06/17/16 at 19:15 Mental Status Exam Vital Signs Vital Signs Date Time Temp Pulse Resp B/P Pulse Ox O2 Delivery O2 Flow Rate FiO2 06/18/16 10:34 36.2 112 16 142/83 Appearance: Unkept Attitude: Cooperative, Guarded Behavior: No unusual behavior Affect: Restricted Mood: Dysthymic, Anxious Thought Process/Associations: Goal Directed Speech Production: Normal Speech Rate: Normal Speech Articulation: Normal Thought Content: Mandaeism preoccupation, Negativistic, Obsessions/compulsions Danger to Self/Suicidal Ideati: Passive (no intent or plan while in hospital uncertain in correction) Danger to Others: Thoughts/Plans of Harming Others (in response to auditory hallucinations but no intent to harm.) Delusions: Paranoid Hallucinations: Auditory (Endorses), Visual (Endorses) Orientation: Person, Place, Date, Situation Memory: Grossly Intact Estimate Intellectual Function: Average Basis for IQ estimate: Awareness current events, Word use/vocabulary, Educational history, Employment history Attention/Concentration & Cogn: Grossly Intact Insight: Good Judgement: Good Mental Health Plan The patient is a 35-year-old male who had previously gone to [employer] and had made a pilgrimage to [place] where he had his first psychotic break in 2004. 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 He had a partial response to current medication treatments but continues to experience auditory and visual hallucinations with quaker delusions and ongoing suicidality and homicidality. He denies current intent to harm himself or others although he is unsure should he be released from hospital. The patient appears to have had a partial response to medication but continues to use heavy doses of anxiolytics and continues to express anxiety. Given the partial response, augmentation with a mood stabilizer is warranted at this time. He reported side effects from Depakote and so an alternate is warranted at this time. Once he is done with his time in the hospital he will return to the correction. He is willing to stay in the hospital to adjust medications. Today, the patient is reporting that his anxiety is bad but about the same as yesterday. Discussed need to further decrease lorazepam dose. We discussed using hydroxyzine and increasing oxcarbazepine. We discussed further reduction of mirtazapine. He was agreeable to increasing prazosin for nightmares and vital signs have been stable. Discussed with patient need to monitor for hypotension. [place] AXIS I 1. Schizophrenia, paranoid type. 2. Generalized anxiety disorder. 3. Rule out posttraumatic stress disorder, chronic. AXIS II Deferred. AXIS III None. AXIS IV psychosocial stressors moderate to severe AXIS V Global assessment of functioning of current 30 Medications Benztropine 1 mg twice daily Haloperidol 20 mg twice daily Oxcarbazepine 600 mg twice daily Haloperidol decanoate 50 mg on 06/10/2016. Next dose 100mg on 06/17/2016. Prazosin 5 mg nightly Lexapro 10mg po daily Hydroxyzine 50mg po q6h prn anxiety Mirtazapine 15 mg nightly Temazepam 30 mg nightly Lorazepam 1 mg every 8 hours as needed as using approximately 4 mg per day. Treatments 1. Continue current medications as written. 2. Will decrease Lorazepam to 1 mg every 8 hours as needed for anxiety tomorrow if tolerates changes to other medications. 3. Increase oxcarbazepine to 600 mg po twice daily 4. Patient received haloperidol decanoate 100 mg IM on 06/17/2016. 5. Decrease mirtazapine to 15mg and increase escitalopram to 10mg 6. Increase prazosin to 5 mg nightly and change temazepam to PRN only. 7. Patient received seven-day extension on his existing 90 day less restrictive order. 8. No indication for one to one at this time as he is denying current active suicidality with intent to harm self in the hospital and is reporting homicidality with no targets and no plan or intent. 9. Patient will return to correction once mental health treatment is completed. Norberto Alarcon MD Jun 18, 2016 17:59
--- NOTE | 2016-06-18 22:20 | NUR ---
Nursing Notes [id number] S: "I feel like I should try to be out of my room more, but the visual hallucinations get worse when I am in the dining room, then my anxiety gets worse-so I come back to my room". O: Anxiety -03/09, depression -02/07, reporting auditory hallucinations. Reporting increasing visual hallucinations and suicidal/homicidal ideation when out in milieu. A: Patient continues to isolate-reporting increased auditory hallucinations when in milieu. Patient anxious, soft spoken, polite, cooperative. P: Monitor for response to treatment/medications. Q15 min checks for safety. Follow plan of care. Addendum: 06/18/16 at 2229 by EARLINE CASTILLO RN PRN's Zyprexa 10 mg po @ 1547 for voices. Minimally effective. Ativan 1 mg po @ 1811 for anxiety 03/09. Minimally effective, anxiety decreased to 9/10. Ativan 1 mg po @ 2149 for anxiety 02/07. Minimally effective, anxiety decreased to 8/10. Zyprexa 10 mg po @ 2149 for voices. Vistaril 50mg po @2149 for anxiety. Restoril 30 mg @2205 for sleep.
--- NOTE | 2016-06-19 04:25 | NUR ---
nursing, nights, 11-7 s- is there anything else. oh, ok i'll try. thanks. o- alternated between his room and the dinning room. has appeared to sleep after 0215. assessed q 15 minutes. a- difficulty sleeping related to anxiety. staff support and medication helpful. no apparent physical distress. p- monitor behavior/emotional state, quality, times and amount of sleep, use and effect of medication. husam
--- NOTE | 2016-06-19 05:27 | NUR ---
Pt wake off and on for much of shift, noted feeling restless. Asleep at 215. Awake on and off Pleasant and willing to come to staff if voices or aggressive urges occur. Pt observed every 15 minutes as ordered.
[2016-06-19] MEDS: OXcarbazepine 300 mg Tablet PO SCH ×2 (09:51→20:11)
[2016-06-19 11:30] VITALS: BP 129/83; PULSE 110; RESP 18
[2016-06-19] MEDS: OLANZapine Zydis ODT 5 mg Tablet PO PRN (12:37)
--- NOTE | 2016-06-19 13:50 | NUR ---
Nursing Day Shift- S/O- Pt. had slept a broken 7.7 hours per report. He came out of his room for meals and medications, otherwise he isolated in his room. Pt. is able to contract for safety, but he continues to report auditory and visual hallucinations. A- Pt. continues to isolate and sleep during the day. He appears relaxed with full affect when out of her room. P- Cont. TP.
--- NOTE | 2016-06-19 16:40 | PCM.PNPSY ---
Subjective Date of Service Jun 19, 2016 Subjective The patient reports that he is feeling anxious but has used less lorazepam today , so far he has only used 1 mg of lorazepam. He still reports having visual hallucinations this morning with corresponding auditory hallucinations, but the intensity is much decreased. As noted yesterday, he reports still having anxiety but objectively appears calmer. No side effects. Sleep: 7.75+ hours, "nightmares were okay." Appetite: "good" Suicidal and homicidal ideation: patient reports transient SI/HI with no plan or intent, but concern should he be discharged. Auditory hallucinations: reports ongoing negative voices Visual hallucinations: Reports having some visual hallucinations of blood this morning around breakfast. Other Psychotic Symptoms: N/A Anxiety: 12/07, yesterday 01/07 Depression: 02/07, yesterday 02/07 Current Medications Current Medications Escitalopram Oxalate 5 mg DAILY PO Last administered on 06/18/16 08:12; Admin Dose 5 MG; Start 06/18/16 at 08:30; Stop 06/18/16 at 21:49; Status DC Escitalopram Oxalate 10 mg DAILY PO Last administered on 06/19/16 09:51; Admin Dose 10 MG; Start 06/19/16 at 08:30 Hydroxyzine Pamoate 50 mg Q6 PRN PO Last administered on 06/19/16 12:36; Admin Dose 50 MG; Start 06/18/16 at 17:55 Lorazepam 1 mg Q8 PRN PO Last administered on 06/19/16 12:36; Admin Dose 1 MG ; Start 06/18/16 at 21:55 Mirtazapine 15 mg HS PO Last administered on 06/18/16 20:46; Admin Dose 15 MG; Start 06/18/16 at 21:00 Mirtazapine 30 mg HS PO Last administered on 06/17/16 20:37; Admin Dose 30 MG; Start 06/17/16 at 21:00; Stop 06/18/16 at 17:59; Status DC Oxcarbazepine 300 mg DAILY PO Last administered on 06/18/16 07:33; Admin Dose 300 MG; Start 06/18/16 at 08:30; Stop 06/18/16 at 17:58; Status DC Oxcarbazepine 600 mg BID PO Last administered on 06/19/16 09:51; Admin Dose 600 MG; Start 06/18/16 at 20:30 Oxcarbazepine 600 mg HS PO Last administered on 06/17/16 20:40; Admin Dose 600 MG; Start 06/17/16 at 21:00; Stop 06/18/16 at 17:59; Status DC Prazosin HCl 4 mg HS PO Last administered on 06/17/16 20:39; Admin Dose 4 MG; Start 06/17/16 at 21:00; Stop 06/18/16 at 17:59; Status DC Prazosin HCl 5 mg HS PO Last administered on 06/18/16 20:46; Admin Dose 5 MG; Start 06/18/16 at 21:00 Temazepam 30 mg HS PRN PO Last administered on 06/18/16 22:05; Admin Dose 30 MG; Start 06/17/16 at 19:15 Mental Status Exam Vital Signs Vital Signs Date Time Temp Pulse Resp B/P Pulse Ox O2 Delivery O2 Flow Rate FiO2 06/19/16 11:30 36.6 110 18 129/83 Appearance: Unkept Attitude: Pleasant, Cooperative Behavior: No unusual behavior Affect: Restricted Mood: Dysthymic, Anxious Thought Process/Associations: Goal Directed Speech Production: Normal Speech Rate: Normal Speech Articulation: Normal Thought Content: Voodoo preoccupation, Negativistic, Obsessions/compulsions Danger to Self/Suicidal Ideati: Passive (no intent or plan while in hospital uncertain in fdc) Danger to Others: Thoughts/Plans of Harming Others (in response to auditory hallucinations but no intent to harm.) Delusions: Paranoid (Endorses) Hallucinations: Auditory (Endorses), Visual (Endorses) Orientation: Person, Place, Date, Situation Memory: Grossly Intact Estimate Intellectual Function: Average Basis for IQ estimate: Awareness current events, Word use/vocabulary, Educational history, Employment history Attention/Concentration & Cogn: Grossly Intact Insight: Good Judgement: Good Mental Health Plan The patient is a 35-year-old male who had previously gone to [employer] school and had made a pilgrimage to [place] where he had his first psychotic break in 2004. 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 He had a partial response to current medication treatments but continues to experience auditory and visual hallucinations with taoist delusions and ongoing suicidality and homicidality. He denies current intent to harm himself or others although he is unsure should he be released from hospital. The patient appears to have had a partial response to medication but continues to use heavy doses of anxiolytics and continues to express anxiety. Given the partial response, augmentation with a mood stabilizer was warranted. He reported side effects from Depakote and so an alternate is warranted. Given the potential interactions with lithium and haloperidol high dose, oxcarbazepine was chosen and titrated to a dose of 600 mg twice a day. Once he is done with his time in the hospital he will return to the [facility]. He is willing to stay in the hospital to adjust medications. The patient is prescribed hydroxyzine which she is to use instead of lorazepam when this is discontinued. Phrases and appears to be effective for nightmares. The patient has received 2 haloperidol decanoate injections and is continuing to receive high-dose oral which may be worsening some of his symptoms. We discussed decreasing oral haloperidol and observing for decrease in symptoms. On physical examination, patient had no cogwheeling or rigidity and no signs of tardive dyskinesia. [place] AXIS I 1. Schizophrenia, paranoid type. 2. Generalized anxiety disorder. 3. Rule out posttraumatic stress disorder, chronic. AXIS II Deferred. AXIS III None. AXIS IV psychosocial stressors moderate to severe AXIS V Global assessment of functioning of current 30 Medications Benztropine 1 mg twice daily Decrease Haloperidol to 10 mg twice daily Oxcarbazepine 600 mg twice daily Haloperidol decanoate 50 mg on 06/10/2016 and 100mg on 06/17/2016. Prazosin 5 mg nightly Lexapro 10mg po daily Hydroxyzine 50mg po q6h prn anxiety Mirtazapine 15 mg nightly, will stop in 5 days. Temazepam 30 mg nightly Lorazepam 1 mg every 8 hours as needed as using approximately 1 mg per day, will decrease to 0.5 mg 4 times daily starting in 2 days. Treatments 1. Continue current medications as written. 2. Will decrease Lorazepam to 0.5 mg every 6 hours as needed for anxiety tomorrow if tolerates changes to other medications. Will keep at low dose as likely will not receive in [facility]. 3. Continue oxcarbazepine to 600 mg po twice daily. 4. Patient received haloperidol decanoate 100 mg IM on 06/17/2016. 5. Discontinue mirtazapine after 5 days and continue escitalopram to 10mg 6. Increase prazosin to 5 mg nightly and change temazepam to PRN only. 7. Patient received seven-day extension on his existing 90 day less restrictive order. 8. No indication for one to one at this time as he is denying current active suicidality with intent to harm self in the hospital and is reporting homicidality with no targets and no plan or intent. 9. Patient will return to [facility] once mental health treatment is completed. Norberto Alarcon MD Jun 19, 2016 16:40
--- NOTE | 2016-06-19 18:20 | NUR ---
Observations 0900 to 2130 Pt affect and mood remains the same as previous shift. Isolative, guarded and flat. Pt speech and eye contact was good. Pt remained in his room in bed most of the day. Pt was minimally social with staff when approached. Pt came out for meals and snacks. Pt attended meals in D.R. and ate 100% of all meals. Pt maintained behavior throughout the shift. Pt declined going to groups and unit activities. Pt was polite, pleasant and cooperative. Pt was observed every 15 minutes throughout the shift as ordered.
--- NOTE | 2016-06-19 19:35 | NUR ---
Order Department Supervisor/Counselor: S/O: Patient slept 7.75+ hours last night as per staff. He has passive thoughts of hurting himself if he is outside the hospital but does not have intent or plan. He reports hearing negative voices. He reports "seeing" blood. Depression is 9/10 and anxiety is 7/10. A: Patient is cooperative, unkept, restricted affect, dysthymic, anxious, paranoid, passive. P: Follow care plan coordinate out-patient providers.
[2016-06-19] MEDS: LORazepam 0.5 mg Tablet PO PRN (20:27)
--- NOTE | 2016-06-20 05:10 | NUR ---
nursing, nights, 11-7 s/o- has appeared to sleep after 2300 during q 15 minute assessments. a- no apparent distress. p- monitor behavior/emotional state, quality, times and amount of sleep, use and effect of medication. husam
--- NOTE | 2016-06-20 05:17 | NUR ---
Pt isolated to room much of shift. Asleep at 2300 only getting up once. Pleasant and willing to come to staff if voices or aggressive urges occur. Pt observed every 15 minutes as ordered.
[2016-06-20] MEDS: LORazepam 0.5 mg Tablet PO PRN ×2 (10:51→18:54)
[2016-06-20] MEDS: OXcarbazepine 300 mg Tablet PO SCH ×2 (10:54→20:06)
--- NOTE | 2016-06-20 11:07 | PROG NOTE ---
[address] [address] PROGRESS NOTE PATIENT: LOUIS MARTINEZ : 1980 MR#: [id number] ADMIT: 06/07/2016 JOB ID: [id number] DATE: 06/20/2016 SUBJECTIVE: This is a 35-year-old gentleman hospitalized involuntarily on this unit on June 07, 2016. DIAGNOSIS: 1. Schizophrenia, chronic, paranoid type. 2. Cannabis abuse disorder. Patient seen and discussed with staff. No chronic medical or acute pain issues in this gentleman at this point. MEDICATIONS: 1. Haldol 10 mg twice a day reduced yesterday. 2. Lexapro 10 mg in the morning. 3. Mirtazapine 15 mg at night. 4. Prazosin 5 mg at night. 5. Trileptal 600 mg b.i.d. 6. Cogentin 1 mg b.i.d. The patient seen and discussed with staff. Isolates but cooperative with care. Seven hours of sleep. Good intake. Still a significant degree of anxiety, reduced depression. Still some suicidal ideation, perceptual disturbance, but contracts for safety on the unit. Does report homicidal ideation when he came in but she has the intensity is lessening and contracts for safety. Needed p.r.n.'s to help with sleep at night as well as with anxiety. I told him that we were in the process of adjusting his Haldol dosage including adjusting the Decanoate and overall dose and that is why he was here. He appears very appreciative of that and agrees to stick around until that is adjusted. So the management for now stays the same since the Haldol was reduced yesterday and he was given the decanoate form. We will continue to ingredient scaler his reality testing.
[2016-06-20 12:26] VITALS: BP 136/91; PULSE 97; RESP 16
--- NOTE | 2016-06-20 13:26 | NUR ---
Day shift nursing note-Anxiety/SI/Depression/Psychosis S/O-"I wish that alma who is yelling would just shut up!" Pt. requested and was given 0.5 mg. of ativan PO per request at 1051 for anxiety rated at 9/10. 1 hour later he was calmer and stated the med was helpful.He stated he did not fall asleep until 2 AM after he was given several meds. He rates his SI and HI at 8/10 and depression at 9/10. He stated his appetite is fine but he had to go back to bed after breakfast because he was very tired. He states he can keep himself safe but the auditory hallucinations are very loud. He is appropriate with staff and tends to keep to himself to decrease stimuli. A-Psychosis. Monitor for safety per protocol. Assess efficacy of meds to decrease psychosis. Decrease stimuli. Encourage engagement in groups when able.
--- NOTE | 2016-06-20 13:40 | NUR ---
Bicycle I Assembler./ c.m. S.:"Sleep is getting better... voices are the same, nothing changed." O.: met with pt. and MD together in pt.'s room. He was sleeping soundly in the middle of the morning. He woke up after hearing his name. He was able to talk to MD and the card writer hand. Pt. said that he had interrupted sleep last night but overall his sleep was getting better. He continued having SI/HI but he agreed to keep himself safe here in the unit. He continued having AH/VH. He said that AH were "a little better" but VH "still the same". He rated depression at 8/10 and anxiety at 9/10 in that time. He was in bed sleeping most of the morning. A.: pt. is isolative, cooperative, sleeping a lot, quiet. He looked calm, had a good eye contact, looked disheveled. P.: monitor behavior, provide safety in the unit, encourage pt. to spend more time in a public area and to take a shower; follow care plan.
--- NOTE | 2016-06-20 16:23 | NUR ---
Observations 0700 to 1900 Pt maintained behavioral control throughout the shift. Pt is flat, isolative, withdrawn. Pt is cooperative when approached but is depressed and does not seek interaction. Pt stayed in room the entire day except for meals. Pt set daily goal to "make the voices stop." Pt observed every 15 minutes as ordered.
--- NOTE | 2016-06-20 19:11 | NUR ---
Nurses PRN Patient called staff due to increased anxiety,thoughts of hurting others because he sees "blood".Patient received HS Haldol 10mg,Ativan 0.5mg,Cogentin 1mg and prn,Vistaril 50mg. Patient has been isolating to his room due to elevated unit noises. Will assess response. Addendum: 06/20/16 at 2220 by VIJAYA RICHMOND RN Nurses Note Evening Patient continued to feel anxious,troubled by inner stimuli that keeps him in his room for fear he may hurt someone. He received Zyprexa Zydis 10mg,Restoril 30mg prn at 1999. Patient later at 2220 was feeling better and requesting juices. Will continue to offer support,maintain safety with q 15min. checks.
[2016-06-20] MEDS: OLANZapine Zydis ODT 5 mg Tablet PO PRN (20:07)
[2016-06-20] MEDS: Alum-Mag Hydrox-Simeth 30 mL Suspension PO PRN (20:30)
--- NOTE | 2016-06-21 05:15 | NUR ---
nursing, nights, 11-7 s/o- has appeared to sleep after 2244 during q 15 minute assessments. a- no apparent distress. p- monitor behavior/emotional state, quality, times and amount of sleep, use and effect of medication. husam
--- NOTE | 2016-06-21 06:19 | NUR ---
Pt isolated to room much of shift. Noted having a very hard time with the voices telling him to harm the people he saw red on. After talking, redirection and medication from RN he was eventually able to settle. Asleep at 2245. Pleasant and did call staff when voices or aggressive urges occurred. Pt observed every 15 minutes as ordered.
[2016-06-21] MEDS: OXcarbazepine 300 mg Tablet PO SCH ×2 (09:04→20:36)
[2016-06-21] MEDS: LORazepam 0.5 mg Tablet PO PRN ×3 (09:23→21:41)
--- NOTE | 2016-06-21 12:13 | NUR ---
Ware Finisher./ c.m. S.:"I'm doing better today. I had a very bad spell yesterday in the evening." O.: met with pt. and MD together in pt.'s room. He was in bed resting but he was able to get up and talk to MD. He slept "some" last night (about 7 hrs per staff report) but "it was interrupted sleep". He was a little more active yesterday in the evening. He said that SI/HI "are still here". He continued having AH "maybe just a little bit less intense". He rated his VH at 7/10. He felt "very anxious" (9/10) and "still depressed" (8/10). He agreed to increase a dose of Haldol to help with AH/VH. He was in his room in bed all morning. A.: pt. is isolative, cooperative, has a good eye contact, quiet. He has a flat affect and looks disheveled. P.: monitor behavior, encourage pt. to spend more time in a public area, provide safety in the unit, work on follow up; follow care plan.
--- NOTE | 2016-06-21 13:16 | NUR ---
Nursing Note [id number] Behavior, Medications S/O: Pt ate 100% of breakfast & lunch. Took am medications without problems. States that he slept good last night. Ate breakfast late d/t being able to sleep in. Pt requested Ativan. 0.5 mg given for c/o "feeling anxious when I get around people." He reported seeing blood on 2 of the other patients today. Pt isolated in room except for meals. Minimal eye contact. Pt d/n attend group today. A: Pt con't to feel anxious about command hallucinations. P: Provide supportive environment. Monitor medications & effects.
[2016-06-21 15:36] VITALS: BP 116/72; PULSE 80; RESP 24
--- NOTE | 2016-06-21 16:03 | PROG NOTE ---
[address] [address] PROGRESS NOTE PATIENT: LOUIS MARTINEZ : 1980 MR#: [id number] ADMIT: 06/07/2016 JOB ID: [id number] DATE: 06/21/2016 This is a 35-year-old, gentleman hospitalized involuntarily on this unit on June 07, 2016. DIAGNOSES: 1. Schizophrenia, chronic paranoid type. 2. Cannabis abuse disorder. Patient seen, discussed with staff. No acute pain or physical issues. Seven hours of h.s. sleep. Still significant anxiety and sleep issues. Cooperative with care. More interactive according to the staff, and in my session with him more optimistic. He is on multiple meds and apparently appears to be in the process of being titrated on the Haldol and the Decanoate. He may need more and aggressive antipsychotic treatment and I will defer that to Dr. Del Castillo or . Continue to in reality testing. Encourage him to participate in the treatment modalities of the unit and with discharge planning.
--- NOTE | 2016-06-21 17:30 | NUR ---
OBSERVATIONS 0900 TO 2130 Pt was isolative and rested in room most of the shift but did come out to watch football with peers after dinner. Pt was pleasant and cooperative with staff. Pt ate 100% of meals as well as snacks. Pt did not participate in groups. Q15 safety checks were maintained as directed.
[2016-06-21] MEDS: Alum-Mag Hydrox-Simeth 30 mL Suspension PO PRN (18:41)
--- NOTE | 2016-06-21 22:51 | NUR ---
Nurses Note Evening Patient has been out on the unit with peers. His affect has been bright with a cheerful mood stating he felt much better today apologizing for his difficult time yesterday requiring PRNS. He denied visions,auditory hallucinations that were directive in nature. He received Ativan 0.5mg at 1728 and 2140 for anxiety with good response and remained in the dining room with peers.Will continue to encourage self soothing talk and techniques to remain in good control with decreased anxiety. Maintain q 15min. checks for safety and support.
--- NOTE | 2016-06-22 04:46 | NUR ---
Nurses Note Nights Patient slept without signs of distress when checked q 15min. No PRN medications requested thus far this shift.
--- NOTE | 2016-06-22 06:12 | NUR ---
Pt was out on shift much of shift attending group, coloring and interacting with others. Noted in group it is the best day he has had since being here. He did in one on one discuss that the voices have been there some today but he has been able to redirect his thoughts. Asleep at 2300. Pt observed every 15 minutes as ordered.
[2016-06-22] MEDS: LORazepam 0.5 mg Tablet PO PRN ×3 (09:37→22:08)
[2016-06-22] MEDS: OXcarbazepine 300 mg Tablet PO SCH ×2 (09:38→22:07)
[2016-06-22 10:00] VITALS: BP 124/71; PULSE 87; RESP 16
--- NOTE | 2016-06-22 10:58 | NUR ---
Nursing Note [id number] Psychotic sx, Medications, Mood S/O: Pt has a good appetite. Out of his room for meals only. Con't to report anxiety at a "8" on a scale of 1-10/10 the worst d/t hallucinations about people having blood on them. Ativan 0.5 mg given at 0935. Pt reports he slept well last night. Poor eye contact. Conversation tracking clear & organized with normal rate & rhythm. Affect appears worried. Pleasant with staff & peers. A: Pt con't to have paranoia & anxiety r/t hallucinations. P: Provide supportive environment. Monitor medications & effects.
--- NOTE | 2016-06-22 12:11 | PCM.PNPSY ---
Subjective Date of Service Jun 22, 2016 Subjective I spent 30 minutes both reviewing his treatment plan and providing supportive and educational psychotherapy. I spent more than 50% of the time counseling the patient. I reviewed the treatment plan with the patient and discussed medication and psychotherapy options to deal with his current delusions. Amor continues to have severe hallucinations of command type hallucinations telling him to kill himself and to hurt others. He states that he continues to struggle. The Staff reports that he has been isolating in his room and not participating well in one-to-one unit and group activities. He slept 6 hours. He denies medication side effects. Patient was able to identify his medications and what they were used to treat. He appeared to understand the need for medications by the questions he asked during our discussion. Mental Status Exam Appearance: Unkept Attitude: Pleasant, Cooperative Behavior: No unusual behavior Affect: Restricted Mood: Dysthymic, Anxious Thought Process/Associations: Goal Directed Speech Production: Normal Speech Rate: Normal Speech Articulation: Normal Thought Content: Confucianist preoccupation, Negativistic, Obsessions/compulsions Danger to Self/Suicidal Ideati: Passive (no intent or plan while in hospital uncertain in assisted) Danger to Others: Thoughts/Plans of Harming Others (in response to auditory hallucinations but no intent to harm.) Delusions: Paranoid (Endorses) Hallucinations: Auditory (Endorses) Orientation: Person, Place, Date, Situation Memory: Grossly Intact Estimate Intellectual Function: Average Basis for IQ estimate: Awareness current events, Word use/vocabulary, Educational history, Employment history Attention/Concentration & Cogn: Grossly Intact Insight: Good Judgement: Good Mental Health Plan Amor is a 35-year-old white male who had previously gone to [employer] school and had made a pilgrimage to [place] where he had his first psychotic break in 2004. 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 He had a partial response to current medication treatments but continues to have rather severe psychotic symptoms of auditory hallucinations and taoism delusions that are fueling an impulse to suicide or homicide. He does not identify any specific means to kill himself and he does not have any specific desire to kill any individual person. He does seem to be responding to the structure of the unit as well as medications. He seems to be making slow but steady progress. His legal hold here will be up on Wednesday and the plan had been to get him back to assisted to serve his time. I am recommending that the court approved for an additional 3 days of involuntary treatment prior to transferring back to the assisted to serve time. [place] AXIS I 1. Schizophrenia, paranoid type. 2. Generalized anxiety disorder. 3. Rule out posttraumatic stress disorder, chronic. AXIS II Deferred. AXIS III None. AXIS IV psychosocial stressors moderate to severe AXIS V Global assessment of functioning of current 40 Medications Benztropine 1 mg twice daily Haloperidol to 10 mg twice daily Oxcarbazepine 600 mg twice daily Haloperidol decanoate 50 mg on 06/10/2016 and 100mg on 06/17/2016. Prazosin 5 mg nightly Lexapro 10mg po daily Hydroxyzine 50mg po q6h prn anxiety Mirtazapine 15 mg nightly, will stop in 5 days. Temazepam 15 mg nightly Lorazepam 1 mg every 8 hours as needed as using approximately 1 mg per day Treatments 1. Continue current medications as written except as noted below. 2. Lorazepam to.5 mg every 8 hours as needed for anxiety 3. Oxcarbazepine 600 mg bid 4. Patient received haloperidol decanoate 100 mg IM on 06/17/2016. 5. Begin cross taper from mirtazapine to Lexapro with Lexapro 5 mg in the morning and mirtazapine decreased to 30 mg. We will discontinue temazepam in 5 days. 6. Prazosin to 5 mg nightly 7. Will ask the court for a 3 day extension on his existing 90 day less restrictive order 06/23/2016 8. Patient will return to assisted once mental health treatment is completed. Garret Del Castillo MD Jun 22, 2016 12:04
[2016-06-22] MEDS: Alum-Mag Hydrox-Simeth 30 mL Suspension PO PRN ×2 (16:27→23:04)
--- NOTE | 2016-06-22 17:33 | NUR ---
Observations 0900 to 2130 Pt affect and mood was bright when engaged and more social than previous shifts. Sheet Fed Printer suggested to pt to come out of his room more and attend groups, etc. Pt was out of his room more and he thanked field underwriter later for giving him a nudge to come out more. Pt speech and eye contact was better. Pt came out for meals and snacks. Pt attended meals in D.R. and ate 100% of all meals. Pt maintained behavior throughout the shift. Pt attended groups and unit activities. Pt attended community meeting and set a daily goal. Pt was polite, pleasant and cooperative. Pt went outside on patio with staff and peers. Pt was observed every 15 minutes throughout the shift as ordered.
--- NOTE | 2016-06-22 18:57 | NUR ---
NURSING NOTE [id number] Orientation= x4 Mood= "better" Affect= pleasant, calm, polite Behavior= more visible in milieu, spending time in group room doing crafts w/peers and listening to music, socializing more, ate his meal in the dining room. Thought processes= pt. reports he is doing "better today" and that it has been helpful to distract himself from the voices he hears. He reports they're still present but when he's doing activities on the unit he isn't bothered by them. Still endorses anxiety and some depression, denies SI/HI. Med compliant. PRNs Ativan 0.5 mg @ 15:36 for 8/10 anxiety Maalox @ 16:27 for indigestion
--- NOTE | 2016-06-23 01:54 | NUR ---
Observations 1900 to 0700 Pt affect is flat but improved. Pt was polite and cooperative. Pt was out n the DR for most of the night and socializing with the other Pt's. Pt did attend wrap up group. Pt first appeared asleep at 23:30 and was observed every 15 minutes through the night as directed.
--- NOTE | 2016-06-23 06:23 | NUR ---
Nursing [id number] Pt appeared to sleep from 2330 during q15min safety checks. No apparent distress. Pt has not requested any PRN medications throughout night.
[2016-06-23] MEDS: OXcarbazepine 300 mg Tablet PO SCH ×2 (09:13→20:22)
[2016-06-23] MEDS: LORazepam 0.5 mg Tablet PO PRN ×3 (09:13→21:50)
[2016-06-23 10:47] VITALS: BP 133/83; PULSE 104
--- NOTE | 2016-06-23 12:26 | NUR ---
Nursing Note [id number] Psychotic Sx, Medications S/O: Pt took am medications without problems. Good appetite. VS stable except pulse is high at 104. Pt c/o continuing audio & visual hallucinations. He states, "The voices are decreasing." Pt has been using distraction techniques to focus on other things besides hallucinations. Pt said, "I want to get out of my room more today after I take a nap." Pt out for meals, but hasn't been out of his room at other times. Ativan 0.5 mg given at 0913 per pt request d/t anxiety r/t voices. Affect is brighter today. Eye contact is improved. A: Pt slowly improving & using coping skills for hallucinations. P: Provide supportive environment. Monitor medications & effects.
--- NOTE | 2016-06-23 12:33 | PCM.PNPSY ---
Subjective Date of Service Jun 23, 2016 Subjective I spent 30 minutes both reviewing his treatment plan reviewing the court process with both he and his defense wrapper leaf inspector and providing supportive and educational psychotherapy. I spent more than 50% of the time counseling the patient. Amor continues to have auditory hallucinations but no longer command type hallucinations telling him to kill himself and to hurt others. He states that he continues to struggle that he feels he is on the right track. The Staff reports that he has been less isolative and he is beginning to participate in one-to-one unit and group activities. He slept 6.5 hours. He denies medication side effects. Patient was able to identify his medications and what they were used to treat. He appeared to understand the need for medications by the questions he asked during our discussion. Mental Status Exam Vital Signs Vital Signs Date Time Temp Pulse Resp B/P Pulse Ox O2 Delivery O2 Flow Rate FiO2 06/23/16 10:47 36.2 104 133/83 Appearance: Unkept Attitude: Pleasant, Cooperative Behavior: No unusual behavior Affect: Well Modulated/Appropriate Mood: Anxious Thought Process/Associations: Goal Directed Speech Production: Normal Speech Rate: Normal Speech Articulation: Normal Thought Content: Anabaptist preoccupation, Negativistic Danger to Self/Suicidal Ideati: Passive (no intent or plan while in hospital uncertain in care home) Danger to Others: Thoughts/Plans of Harming Others (in response to auditory hallucinations but no intent to harm.) Hallucinations: Auditory (Endorses) Orientation: Person, Place, Date, Situation Memory: Grossly Intact Estimate Intellectual Function: Average Basis for IQ estimate: Awareness current events, Word use/vocabulary, Educational history, Employment history Attention/Concentration & Cogn: Grossly Intact Insight: Good Judgement: Good Mental Health Plan Amor is a 35-year-old white male who had previously gone to [employer] school and had made a pilgrimage to [place] where he had his first psychotic break in 2004. 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 He had a partial response to current medication treatments but continues to have rather severe psychotic symptoms of auditory hallucinations and buddhist delusions that are fueling an impulse to suicide or homicide. He does seem to be responding to the structure of the unit as well as medications. He seems to be making slow but steady progress. His legal hold here will be up on Ride a and the plan had been to get him back to care home to serve his time. The court approved for an additional 3 days of involuntary treatment prior to transferring back to the care home to serve time. [place] AXIS I 1. Schizophrenia, paranoid type. 2. Generalized anxiety disorder. 3. Rule out posttraumatic stress disorder, chronic. AXIS II Deferred. AXIS III None. AXIS IV psychosocial stressors moderate to severe AXIS V Global assessment of functioning of current 40 Medications Benztropine 1 mg twice daily Haloperidol to 10 mg twice daily Oxcarbazepine 600 mg twice daily Haloperidol decanoate 50 mg on 06/10/2016 and 100mg on 06/17/2016. Prazosin 5 mg nightly Lexapro 10mg po daily Hydroxyzine 50mg po q6h prn anxiety Mirtazapine 15 mg nightly, will stop in 5 days. Temazepam 15 mg nightly when necessary Lorazepam .5mg every 8 hours as needed as using approximately 1 mg per day Treatments 1. Continue current medications as written except as noted below. 2. Lorazepam to.5 mg every 8 hours as needed for anxiety 3. Oxcarbazepine 600 mg bid 4. Patient received haloperidol decanoate 100 mg IM on 06/17/2016. 5. Begin cross taper from mirtazapine to Lexapro with Lexapro 5 mg in the morning and mirtazapine decreased to 30 mg. We will discontinue temazepam in 5 days. 6. Prazosin to 5 mg nightly 7. Will ask the court for a 3 day extension on his existing 90 day less restrictive order 06/23/2016 8. Patient will return to care home once mental health treatment on Wednesday if he continues to improve. Garret Del Castillo MD Jun 23, 2016 12:27
--- NOTE | 2016-06-23 14:19 | NUR ---
Chuck Splitter./ c.m. S.:"I'm feeling a little better. I think medications started helping more." O.: met with pt. in his room after lunch. He was sleeping but he was able to wake up and to talk to the verse writer. He slept "ok" last night. He said that he didn't feel as good today as it was yesterday. He didn't know a reason for that. He continued having SI/HI that he rated at 7/10 - "voices are telling me to kill myself and other people but I don't have to listen to them." He continued having AH/VH but "they were not as strong. I was trying to ignore them. I don't have to listen to them." He spent most of the day in his room except for meals. He agreed to go to an afternoon group and to spend more time outside his room later afternoon. Homebirth Midwife informed pt. about future discharge plan. Homebirth Midwife faxed 90 LRO paper to [facility] @ [phone] as well as a request for follow up services at [facility]. Homebirth Midwife spoke with tom Garcia at [facility] ([phone]) regarding intake appt. for mental health services. Radha will call back later with a date and a time of the appt. She also said that [facility] doesn't provide injection medications. Homebirth Midwife gave pt.'s PCP info to schedule next injection. Homebirth Midwife called [facility] office @ [phone] and spoke with Osman Zavala about pt.'s discharge on Wednesday. Osman Zavala (cell #[phone]) asked to call him on Shanique. to confirm pt.'s discharge on Wednesday. A.: pt. is cooperative, isolative, quiet, looks unkempt. P.: monitor behavior, encourage pt. to stay more in a public area, provide safety; follow care plan.
--- NOTE | 2016-06-23 15:17 | NUR ---
Nurses PRN Patient requested and received Ativan 0.5mg for increasing anxiety,will assess response. Addendum: 06/23/16 at 1845 by VIJAYA RICHMOND RN Nurses PRN Patient received Zyprexa Zydis 10mg for increasing auditory hallucinations,anxiety and worry. Patient admitted to concern over discharging to the detention,feelings of failure and wanting to "give up". Will assess response, maintain q 15min checks for safety and support. Addendum: 06/23/16 at 2305 by VIJAYA RICHMOND RN Nurses Note Evening Patient has been more relaxed and insightful regarding his controlling his thought processes. He talked about future plans for employment. Patient denied feelings of self harm and will be monitored q 15min. for safety and support.
--- NOTE | 2016-06-23 17:57 | NUR ---
Observations [id number] Pt was asleep in room upon start of shift. He attended court today, and appeared very excited afterwards, sharing with peers and staff that he found out he does not have a felony like he thought he had, but instead misdemeanors. Pt did participate in group, and spent more time around peers. Pt ate 100% of meals. In the evening, pt expressed he was feeling more anxious and spent more time in his room. Pt was observed every 15 minutes of shift as directed.
[2016-06-23] MEDS: OLANZapine Zydis ODT 5 mg Tablet PO PRN ×2 (18:26→18:42)
--- NOTE | 2016-06-23 21:21 | NUR ---
NOC NOTE Patient reports feeling "better, I don't have to listen to the voices." Interacting with peers on the unit appropriately. Taking medications without issue. Continuing to wean off ativan. Will continue to monitor for safety.
[2016-06-23] MEDS: Alum-Mag Hydrox-Simeth 30 mL Suspension PO PRN (21:51)
[2016-06-24] MEDS: OXcarbazepine 300 mg Tablet PO SCH ×2 (09:03→20:08)
[2016-06-24] MEDS: LORazepam 0.5 mg Tablet PO PRN ×3 (09:11→21:10)
--- NOTE | 2016-06-24 12:40 | PCM.PNPSY ---
Subjective Date of Service Jun 24, 2016 Subjective I spent 30 minutes both reviewing his treatment plan and providing supportive and educational psychotherapy. I spent more than 50% of the time counseling the patient. Amor continues to have auditory hallucinations but no longer command type hallucinations telling him to kill himself and to hurt others. He states that he continues to struggle but that he feels he is on the right track. The Staff reports that he has been less isolative and he is beginning to participate in one-to-one unit and group activities. He slept 8 hours. He denies medication side effects. Mental Status Exam Appearance: Unkept Attitude: Pleasant, Cooperative Behavior: No unusual behavior Affect: Well Modulated/Appropriate Mood: Euthymic Thought Process/Associations: Goal Directed Speech Production: Normal Speech Rate: Normal Speech Articulation: Normal Thought Content: Uatsdin preoccupation, Negativistic Danger to Self/Suicidal Ideati: Passive (no intent or plan while in hospital uncertain in detention) Danger to Others: Thoughts/Plans of Harming Others (in response to auditory hallucinations but no intent to harm.) Delusions: Paranoid (Endorses) Hallucinations: Auditory (Endorses) Orientation: Person, Place, Date, Situation Memory: Grossly Intact Estimate Intellectual Function: Average Basis for IQ estimate: Awareness current events, Word use/vocabulary, Educational history, Employment history Attention/Concentration & Cogn: Grossly Intact Insight: Good Judgement: Good Mental Health Plan Amor is a 35-year-old white male who had previously gone to [employer] school and had made a pilgrimage to [place] where he had his first psychotic break in 2004. 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 He had a partial response to current medication treatments but continues to have rather severe psychotic symptoms of auditory hallucinations and cheondoism delusions that are fueling an impulse to suicide or homicide. He does seem to be responding to the structure of the unit as well as medications. He seems to be making slow but steady progress. His legal hold here will be up on Ride a and the plan had been to get him back to detention to serve his time. The court approved for an additional 3 days of involuntary treatment prior to transferring back Wednesday to the detention to serve remaining time. [place] AXIS I 1. Schizophrenia, paranoid type. 2. Generalized anxiety disorder. 3. Rule out posttraumatic stress disorder, chronic. AXIS II Deferred. AXIS III None. AXIS IV psychosocial stressors moderate to severe AXIS V Global assessment of functioning of current 40 Medications Benztropine 1 mg twice daily Haloperidol to 10 mg twice daily Oxcarbazepine 600 mg twice daily Haloperidol decanoate 50 mg on 06/10/2016 and 100mg on 06/17/2016. Prazosin 5 mg nightly Lexapro 10mg po daily Hydroxyzine 50mg po q6h prn anxiety Mirtazapine 15 mg nightly, will stop in 5 days. Temazepam 15 mg nightly when necessary Lorazepam .5mg every 8 hours as needed as using approximately 1 mg per day Treatments 1. Continue current medications as written except as noted below. 2. Lorazepam to.5 mg every 8 hours as needed for anxiety 3. Oxcarbazepine 600 mg bid 4. Patient received haloperidol decanoate 100 mg IM on 06/17/2016. Next dose due to 07/18/2016 5. Begin cross taper from mirtazapine to Lexapro with Lexapro 5 mg in the morning and mirtazapine decreased to 30 mg. We will discontinue temazepam in 5 days. 6. Prazosin to 5 mg nightly 7. Will ask the court for a 3 day extension on his existing 90 day less restrictive order 06/23/2016 8. Patient will return to detention once mental health treatment on Wednesday if he continues to improve. Garret Del Castillo MD Jun 24, 2016 12:40
--- NOTE | 2016-06-24 13:33 | NUR ---
Nursing Note [id number] Behavior, Medications S/O: Pt out of room for meals & to meet with provider. Appetite good. Pt requested Ativan 0.5 mg this morning at 0911 to help with anxiety. Pt con't to have audio & visual hallucinations. He remains in his room even though he has been encourage to be active out of his room. A: Pt has poor coping skills to deal with hallucinations. P: Provide supportive environment. Monitor medications & effects.
--- NOTE | 2016-06-24 15:26 | NUR ---
Vocational Evaluator/Counselor: S: "I feel like I'm in a good mood." O: Patient slept 8+ hours last night as per staff. He has passive thoughts of hurting/cutting himself and hurting others if he is outside the hospital, but he contracts for safety. He reports the voices are quieter today, but they are still telling him to hurt people. He also reports seeing "blood on people." Depression is 7/10 and anxiety is 8/10. When asked his mood, patient stated, "Pretty good." A: Patient is cooperative, euthymic, anxious, orthodoxy preoccupation, paranoid, unkept, negativistic, isolative. P: Follow care plan coordinate out-patient providers.
--- NOTE | 2016-06-24 19:03 | NUR ---
Obs Dayshift Pt spent the first part of the shift in bed, only coming out for breakfast and lunch. Pt then got up more coming out of his rm, listening to music, walking a little, snacks. Appears slightly more bright each day. Still has AH, and some concerns about what to do when leaving here. Good ADL's, Good meals
--- NOTE | 2016-06-24 21:13 | NUR ---
Nurses PRN Patient requested and received Vistaril 50mg,Lorazepam 0.5mg,Restoril 15mg for slepp,overnight associate to assess response. Addendum: 06/24/16 at 2234 by VIJAYA RICHMOND RN Nurses Note Evening Patients' mood and outlook were improved this evening as he looked forward getting his life together after his legal issues are resolved. He denied troubled thoughts or voices,feelings of self harm. Will continue to encourage improved insight,coping and self soothing skills.
[2016-06-24] MEDS: Alum-Mag Hydrox-Simeth 30 mL Suspension PO PRN ×2 (21:17→21:20)
--- NOTE | 2016-06-25 05:24 | NUR ---
Pt was out on shift much of shift watching TV and interacting with others. Asleep at 2315. Pt observed every 15 minutes as ordered.
--- NOTE | 2016-06-25 05:25 | NUR ---
nursing, nights, 11-7 s/o- has appeared to sleep after 2315 during q 15 minute assessments. a- no apparent distress. p- monitor behavior/emotional state, quality, times and amount of sleep, use and effect of medication. husam
[2016-06-25] MEDS: OXcarbazepine 300 mg Tablet PO SCH ×2 (09:17→21:41)
[2016-06-25] MEDS: LORazepam 0.5 mg Tablet PO PRN ×3 (09:28→21:41)
--- NOTE | 2016-06-25 11:13 | NUR ---
Nursing Note [id number] Behavior, Medications S/O: Pt has good appetite. Continues to have AH/VH. Pt rates depression at a "5" on a scale of 1-10/10 the worst. He rates anxiety at a "8." Ativan 0.5 mg given at 0928. Discussed using a gratitude diary to help depression. Conversation tracking clear & organized with normal rate & rhythm. He states he "is ready" for discharge to the [facility] tomorrow. Full affect. Pleasant & cooperative with cares. Pt isolates in room except for meals. A: Pt con't to have hallucinations, but is able to control mood better by using coping skills. P: Provide supportive environment. Monitor medications & effects.
--- NOTE | 2016-06-25 11:16 | PCM.PNPSY ---
Subjective Date of Service Jun 25, 2016 Subjective I spent 30 minutes both reviewing his treatment plan and providing supportive and educational psychotherapy. I spent more than 50% of the time counseling the patient. Amor continues to have auditory hallucinations but no longer command type . He has no intention or impulses to kill himself or to hurt others. The Staff reports that he has been less isolative and he is beginning to participate in one-to-one unit and group activities. He slept 7.25 hours. He denies medication side effects. Mental Status Exam Appearance: Neat/well groomed Attitude: Pleasant, Cooperative Behavior: No unusual behavior Affect: Well Modulated/Appropriate Mood: Euthymic Thought Process/Associations: Logical/Sequential, Goal Directed Speech Production: Normal Speech Rate: Normal Speech Articulation: Normal Thought Content: Appropriate Danger to Self/Suicidal Ideati: Passive (no intent or plan while in hospital uncertain in [facility]) Danger to Others: Thoughts/Plans of Harming Others (in response to auditory hallucinations but no intent to harm.) Hallucinations: Auditory (Endorses) Orientation: Person, Place, Date, Situation Memory: Grossly Intact Estimate Intellectual Function: Average Basis for IQ estimate: Awareness current events, Word use/vocabulary, Educational history, Employment history Attention/Concentration & Cogn: Grossly Intact Insight: Good Judgement: Good Mental Health Plan Amor is a 35-year-old white male who had previously gone to [employer] school and had made a pilgrimage to [place] where he had his first psychotic break in 2004. 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 He has had a good response to current medication treatments with a marked decrease in intensity of psychotic symptoms. He no longer feels impulses to harm self or others. He is responding well to the structure of the unit as well as medications. He is making slow but steady progress. His legal hold here will be up on Wednesday and the plan is transferring back to the [facility] to serve remaining time. [place] AXIS I 1. Schizophrenia, paranoid type. 2. Generalized anxiety disorder. 3. Rule out posttraumatic stress disorder, chronic. AXIS II Deferred. AXIS III None. AXIS IV psychosocial stressors moderate to severe AXIS V Global assessment of functioning of current 45 Medications Benztropine 1 mg twice daily Haloperidol to 10 mg twice daily Oxcarbazepine 600 mg twice daily Haloperidol decanoate 50 mg on 06/10/2016 and 100mg on 06/17/2016. Prazosin 5 mg nightly Lexapro 10mg po daily Hydroxyzine 50mg po q6h prn anxiety Mirtazapine 15 mg nightly, will stop in 5 days. Temazepam 15 mg nightly when necessary Lorazepam .5mg every 8 hours as needed as using approximately 1 mg per day Treatments 1. Continue current medications as written except as noted below. 2. Lorazepam to.5 mg every 8 hours as needed for anxiety 3. Oxcarbazepine 600 mg bid 4. Patient received haloperidol decanoate 100 mg IM on 06/17/2016. Next dose due to 07/18/2016, will DC a.m. dose of Haldol and continue 10 mg at bedtime 5. Increase Lexapro to 20 mg in the morning 6. Prazosin to 5 mg nightly 7. Patient will return to [facility] once mental health treatment on Wednesday if he continues to improve. Garret Del Castillo MD Jun 25, 2016 11:16
[2016-06-25] MEDS ORDERED: BENZ1TAB7 PO ×2 (15:13)
[2016-06-25] MEDS ORDERED: HAL5 PO (15:13)
[2016-06-25] MEDS ORDERED: OXCA300T2 PO (15:13)
[2016-06-25] MEDS ORDERED: PRAZ5CAP PO (15:13)
[2016-06-25] MEDS ORDERED: ESCI10TA52 PO (15:13)
[2016-06-25] MEDS ORDERED: HALO100A2 IM (15:14)
--- NOTE | 2016-06-25 15:27 | NUR ---
Case Management: Intake and Referral Form completed and faxed to [place] [facility]. and voice [phone]. Christie Iniguez RN Addendum: 06/25/16 at 1843 by ARLIN LUND [facility] This information is for a different patient.
--- NOTE | 2016-06-25 16:29 | NUR ---
Observations 0700 to 1900 Pt affect and mood was same as previous shifts. Pt was out of his room more today. Pt speech and eye contact was good. Pt came out for meals and snacks. Pt attended meals in D.R. and ate 100% of all meals. Pt maintained behavior throughout the shift. Pt attended group and unit activities. Pt attended community meeting and set a daily goal. Pt was polite, pleasant and cooperative. Pt went outside on patio with staff and peers. Pt was observed every 15 minutes throughout the shift as ordered.
[2016-06-25 18:25] VITALS: BP 151/93; PULSE 128; RESP 16
--- NOTE | 2016-06-25 18:43 | NUR ---
Director Advanced/Counselor: S: "I'm happier than I was when I came in here." O: Patient slept 7.25 hours last night as per staff. He has passive thoughts of hurting/cutting himself and hurting others if he is outside the hospital, but he contracts for safety. He reports the voices are quieter today. He denies visual hallucinations. Depression is 7/10 and anxiety is 7/10. When asked his mood, patient stated, "Happy." A: Patient is cooperative, euthymic, anxious, gnosticist preoccupation, paranoid, unkept, negativistic, isolative. P: Follow care plan coordinate out-patient providers.
--- NOTE | 2016-06-26 04:40 | NUR ---
Pt was out on shift much of shift attending group, coloring and interacting with others. Somewhat anxious to leave tomorrow. Asleep at 0045. Pt observed every 15 minutes as ordered.
--- NOTE | 2016-06-26 05:07 | NUR ---
nursing, nights, 11-7 s/o- has appeared to sleep after 0045 during q 15 minute assessments. a- no apparent distress. p- monitor behavior/emotional state, quality, times and amount of sleep, use and effect of medication. husam
[2016-06-26] MEDS: OXcarbazepine 300 mg Tablet PO SCH (07:34)
[2016-06-26 07:50] VITALS: BP 134/94; PULSE 106; RESP 16
[2016-06-26] MEDS: LORazepam 0.5 mg Tablet PO PRN (07:57)
--- NOTE | 2016-06-26 08:05 | NUR ---
Nursing Discharge Note: Patient cooperative with discharge process. Acknowledges understanding of d/c instructions and has a copy with them upon leaving unit at 0800. [facility]'s deputy here to transport patient back to intermediate in [facility]. Belongings accounted for and with patient. Prescriptions given to [facility] deputy. Patient denies harmful thoughts and hallucinations at this time.
--- NOTE | 2016-06-26 11:17 | DIS ---
[address] [address] DISCHARGE SUMMARY PATIENT: LOUIS MARTINEZ : 1980 MR#: [id number] ADMIT: 06/07/2016 JOB ID: [id number] DIS: IDENTIFICATION: The patient is a 35-year-old, white male, who is single with no children. At this point, he is unemployed. He did attend school through the 12th grade and later obtained a GED and went to [employer] and also community [employer]. REASON FOR ADMISSION: Client admitted on a 72-hour involuntary treatment hold for homicidal ideation with intent and plan, and recurrent suicidal ideation. He was also having visual hallucinations, seeing individuals covered in blood, and auditory hallucinations, telling him to kill individuals. SUMMARY OF PRESENT ILLNESS: The client is a 35-year-old, white male, who had previously gone to [employer] [employer] and had made a pilgrimage to [place] he had his first break in 2004. 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 Client was admitted to our unit. HOSPITAL COURSE: Client admitted to our unit and was provided with a high degree of safety through the structure and active adult engagement he received here. We had him participate in one-to-one unit and group activities focused on improving coping skills, reality based thinking and coming up with a safety plan should suicidal ideation recur as an outpatient. He participated well and actively in all the above events. Throughout his stay, he had consistently severe auditory hallucinations of a violent nature. His medications were increased using Haldol, Trileptal, prazosin and Lexapro to target depression and psychosis. He received Haldol Decanoate, last dose 100 mg on June 17, 2016. He remained on Haldol 10 mg twice a day until the day of discharge. With this level of Haldol, he had a slow but steady decrease in hallucinations and an improvement in functioning and ability to communicate. At the time of discharge, he was denying suicidal ideation plan or intent. He was future planning how to take care of his needs. He appeared to understand his medication relative risks, benefits and side effects, and his need for them. He consistently denied suicidal or homicidal ideation to me for the past week. He will be transported back to nursing home where he will meet with the retina subspecialist to see if he needs further time or if he will be dismissed on time served while here. MENTAL STATUS EXAMINATION: Client neatly dressed, calm, pleasant. His speech was articulate. Mood was euthymic. Affect congruent. Normal intensity. Thought process, client is able to relate a coherent history. He is able to appreciate simple and complex abstractions. He denied ideas of reference and did not appear to be responding to internal stimuli. Thought content was significant for future planning how to take care of his physical and emotional needs. He detailed a reasonable safety plan with me which included refraining from recreational drugs and a series of people he could call, friends and professionals, if his symptoms reoccur. Alert and oriented to person, place and date. Insight and judgment appropriate. Impulse control highly contained. Reality testing intact. Competence to handle current stressors has returned to an appropriate level. DISCHARGE DIAGNOSES: AXIS I 1. Paranoid schizophrenia. 2. Generalized anxiety disorder. 3. Posttraumatic stress disorder. AXIS II None. AXIS III None. AXIS IV Moderate. AXIS V Current Global Assessment of Functioning equal to 45. DISCHARGE PLAN: [facility] at 2 p.m. in [place]. Will see Fay SIERRA, in [place]. Client will be taken back to the [facility] nursing home until he can meet with the retina subspecialist. DISCHARGE MEDICATIONS: 1. Cogentin 1 twice a day. 2. Haldol 10 mg h.s. 3. Trileptal 600 mg b.i.d. 4. Haldol Decanoate 50 mg June 10, 2016 and 100 mg June 17, 2016. Client to receiving other 100 mg in one month on July 18, 2016. 5. Prazosin 5 mg nightly. 6. Lexapro 10 daily. ACTIVITY AND DIET: No restriction. CONDITION ON DISCHARGE: Good. PROGNOSIS: Good. RECOMMENDATIONS: Recommend client refrain from recreational drugs and alcohol while taking psychiatric medications. Recommend he not change his psychiatric medications unless under the direction of a physician.
--- NOTE | 2016-06-26 17:02 | NUR ---
Sales Representative Printing Paper/Counselor: S: "I'm doing okay today." O: Patient slept 5.5 hours last night as per staff. He denies S/I and H/I today. He reports the voices are a lot quieter today. He denies visual hallucinations. Out-patient appointment: Taina Dudley, [facility], counselor, 06/29/16 at 2:00pm. A: Patient is cooperative, future oriented, hopeful. P: Follow care plan, coordinate transportation with [facility], [facility] and out-patient providers.
== END 2016-06-26 08:00 | DRG 885 ==
LOC: MHC 06-07 00:13
PROVIDERS: ADMIT Psychiatry & Neurology Psychiatry; ATTEND Psychiatry & Neurology Psychiatry
DX: F20.0 Paranoid schizophrenia (principal); R45.851 Suicidal ideations; F41.1 Generalized anxiety disorder; F43.12 Post-traumatic stress disorder, chronic; F12.10 Cannabis abuse, uncomplicated; R45.850 Homicidal ideations

== ENCOUNTER 2016-08-15 18:00 | Emergency (ER) | payer OTHER ==
[~2016-08-15] VITALS: Ht 172.7 cm; Wt 113.6 kg
[~2016-08-15 18:00] MED LIST: BENZ1TAB7 PO; ESCI10TA52 PO; HAL5 PO; HALO100A2 IM; OXCA300T2 PO; PRAZ5CAP PO
[2016-08-15 18:09] VITALS: BP 128/75; PULSE 98; RESP 28; O2SAT 97
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
--- NOTE | 2016-08-15 18:58 | DRSVH ---
PROCEDURE: X-RAY CHEST, TWO VIEWS ([id number]) INDICATIONS: shortness of breath TECHNIQUE: 2 views of the chest were acquired. COMPARISON: None. FINDINGS: Surgical changes and devices: None. Lungs and pleura: No pleural effusions or pneumothorax. Lungs are clear. Mediastinum: Mediastinal contours are normal. Heart size is normal. Bones and chest wall: No suspicious bony abnormalities. Soft tissues appear unremarkable. IMPRESSION: No acute cardiopulmonary disease process. Dictated by: Kiesha Mcrae MD, PhD on 08/15/2016 at 18:56 Approved by: Kiesha Mcrae MD, PhD on 08/15/2016 at 18:56
[2016-08-15 19:19] LABS: BASOPHILS % (AUTO) 0.2 % (0-3); EOSINOPHILS % (AUTO) 3.7 % (0-5); MONOCYTES % (AUTO) 8.5 % (4-12); Mean Corpuscular Hemoglobin 30.1 pg (27.0-35.0); Mean Corpuscular Volume 85.4 fL (81-100); NEUTROPHILS % (AUTO) 71.3 % (40-74); Platelet Count 278 bil/L (150-400)
[2016-08-15 19:42] LABS: TROPONIN T < 0.010 ug/L (0.0-0.011)
[2016-08-15 19:51] LABS: Magnesium 1.9 mg/dL (1.6-2.6)
[2016-08-15 20:32] VITALS: BP 129/74; PULSE 94; RESP 20; O2SAT 96
== END 2016-08-15 20:34 | disposition home or self-care (01) ==
LOC: SED 18:00
DX: R60.0 Localized edema (principal); R06.09 Other forms of dyspnea; T42.1X5A Adverse effect of iminostilbenes, initial encounter; X58.XXXA Exposure to other specified factors, initial encounter; Y92.9 Unspecified place or not applicable; Y93.9 Activity, unspecified; Y99.9 Unspecified external cause status; F29 Unspecified psychosis not due to a substance or known physiological condition; Z91.5 Personal history of self-harm; Z87.828 Personal history of other (healed) physical injury and trauma; Z87.898 Personal history of other specified conditions